=== PATIENT | male | born 1955 | race Caucasian/White ===

== ENCOUNTER 2016-03-04 08:00 | Outpatient (CLI) | payer OTHER | END 2016-03-04 08:01 | disposition home or self-care (01) | DX: E11.9 Type 2 diabetes mellitus without complications (principal); E29.1 Testicular hypofunction ==

== ENCOUNTER 2016-06-04 08:05 | Outpatient (CLI) | payer OTHER | END 2016-06-04 08:06 | disposition home or self-care (01) | DX: E11.9 Type 2 diabetes mellitus without complications (principal) ==

== ENCOUNTER 2016-09-04 10:05 | Outpatient (CLI) | payer OTHER ==
[2016-09-04 13:53] LABS: ALBUMIN/GLOBULIN RATIO 1.3 (1.0-2.2); BILIRUBIN,TOTAL 0.8 mg/dL (0.2-1.0); BUN - BLOOD UREA NITROGEN 17 mg/dL (6-20); CALCIUM 8.8 mg/dL (8.5-10.3); CARBON DIOXIDE - CO2 26 mmol/L (21-32); CHLORIDE 105 mmol/L (101-111); CHOL/HDL RATIO 6.1 (<5.0); CHOLESTEROL 218 mg/dL; GFR - MDRD 77 (>89); GLUCOSE 159 mg/dL (70-100); HDL CHOLESTEROL 36 mg/dL; LDL/HDL RATIO 4.3 (<3.6); POTASSIUM 4.1 mmol/L (3.5-5.0); SODIUM 138 mmol/L (135-145); TOTAL PROTEIN 6.9 g/dL (6.7-8.2); TRIGLYCERIDES 136 mg/dL; VLDL CHOLESTEROL 27 mg/dL
[2016-09-04 13:57] LABS: HEMOGLOBIN A1C 0.86 g/dL
== END 2016-09-04 10:06 | disposition home or self-care (01) ==
LOC: LAB.WCP 10:05
PROVIDERS: ATTEND Physician Assistant Medical
DX: E11.9 Type 2 diabetes mellitus without complications (principal)
CPT/HCPCS: 36415; 80053; 80061; 83036

== ENCOUNTER 2016-12-12 08:15 | Outpatient (CLI) | payer OTHER ==
[2016-12-12 13:45] LABS: BASOPHILS # (AUTO) 0.1 10^3/uL (0.0-0.1); BASOPHILS % (AUTO) 0.7 %; EOSINOPHILS # (AUTO) 0.2 10^3/uL (0.0-0.7); EOSINOPHILS % (AUTO) 2.8 %; HCT - HEMATOCRIT 45.4 % (42.0-52.0); HGB - HEMOGLOBIN 15.3 g/dL (14.0-18.0); LYMPHOCYTES # (AUTO) 2.9 10^3/uL (1.5-3.5); LYMPHOCYTES % (AUTO) 36.5 %; MEAN CORPUSCULAR HEMOGLOBIN 29.1 pg (27.0-31.0); MEAN CORPUSCULAR HGB CONC 33.7 g/dL (32.0-36.0); MEAN CORPUSCULAR VOLUME 86.4 fL (80.0-94.0); MEAN PLATELET VOLUME 8.6 fL (7.4-11.4); MONOCYTES # (AUTO) 0.5 10^3/uL (0.0-1.0); MONOCYTES % (AUTO) 6.6 %; NEUTROPHILS # (AUTO) 4.3 10^3/uL (1.5-6.6); NEUTROPHILS % (AUTO) 53.4 %; RED BLOOD COUNT 5.25 10^6/uL (4.70-6.10); RED CELL DISTRIBUTION WIDTH 14.1 % (12.0-15.0)
[2016-12-12 13:58] LABS: ALBUMIN/GLOBULIN RATIO 1.3 (1.0-2.2); BILIRUBIN,TOTAL 0.7 mg/dL (0.2-1.0); BUN - BLOOD UREA NITROGEN 17 mg/dL (6-20); CALCIUM 8.8 mg/dL (8.5-10.3); CARBON DIOXIDE - CO2 24 mmol/L (21-32); CHLORIDE 102 mmol/L (101-111); CHOL/HDL RATIO 6.9 (<5.0); CHOLESTEROL 254 mg/dL; CREATININE 0.9 mg/dL (0.6-1.2); GFR - MDRD 86 (>89); GLUCOSE 161 mg/dL (70-100); HDL CHOLESTEROL 37 mg/dL; LDL/HDL RATIO 4.9 (<3.6); POTASSIUM 4.1 mmol/L (3.5-5.0); SODIUM 136 mmol/L (135-145); TOTAL PROTEIN 6.9 g/dL (6.7-8.2); TRIGLYCERIDES 175 mg/dL; VLDL CHOLESTEROL 35 mg/dL
[2016-12-12 14:12] LABS: HEMOGLOBIN A1C 0.93 g/dL
== END 2016-12-12 08:16 | disposition home or self-care (01) ==
LOC: LAB.WCP 08:15
PROVIDERS: ATTEND Physician Assistant Medical
DX: Z00.00 Encounter for general adult medical examination without abnormal findings (principal); E11.9 Type 2 diabetes mellitus without complications; Z12.5 Encounter for screening for malignant neoplasm of prostate
CPT/HCPCS: 36415; 80053; 80061; 82043; 83036; 84153; 84443; 85025

== ENCOUNTER 2017-04-23 08:00 | Outpatient (CLI) | payer OTHER ==
[2017-04-23 19:00] LABS: ALBUMIN 3.8 g/dL (3.2-5.5); ALBUMIN/GLOBULIN RATIO 1.3 (1.0-2.2); ALKALINE PHOSPHATASE 47 IU/L (42-121); ALT ALANINE AMINOTRANSFERASE 30 IU/L (10-60); AST ASPARTATE AMINOTRANSFERASE 22 IU/L (10-42); BILIRUBIN,TOTAL 0.8 mg/dL (0.2-1.0); BUN - BLOOD UREA NITROGEN 15 mg/dL (6-20); CALCIUM 8.7 mg/dL (8.5-10.3); CARBON DIOXIDE - CO2 25 mmol/L (21-32); CHLORIDE 105 mmol/L (101-111); CHOL/HDL RATIO 7.1 (<5.0); CHOLESTEROL 268 mg/dL; CREATININE 0.9 mg/dL (0.6-1.2); GFR - MDRD 86 (>89); GLUCOSE 138 mg/dL (70-100); HDL CHOLESTEROL 38 mg/dL; LDL CHOLESTEROL,CALCULATED 188 mg/dL; LDL/HDL RATIO 4.9 (<3.6); SODIUM 138 mmol/L (135-145); TOTAL PROTEIN 6.7 g/dL (6.7-8.2); VLDL CHOLESTEROL 42 mg/dL
[2017-04-23 19:04] LABS: HB2 TOTAL 16.3 g/dL; HEMOGLOBIN A1C 0.85 g/dL; HEMOGLOBIN A1C % 6.9 % (4.6-6.2)
== END 2017-04-23 08:01 | disposition home or self-care (01) ==
LOC: LAB.WCP 08:00
PROVIDERS: ATTEND Physician Assistant Medical
DX: E11.9 Type 2 diabetes mellitus without complications (principal)
CPT/HCPCS: 36415; 80053; 80061; 83036; 83721

== ENCOUNTER 2017-07-30 08:00 | Outpatient (CLI) | payer OTHER ==
[2017-07-30 19:20] LABS: HB2 TOTAL 16.4 g/dL; HEMOGLOBIN A1C 0.91 g/dL; HEMOGLOBIN A1C % 7.2 % (4.6-6.2)
[2017-07-30 19:28] LABS: ALBUMIN 3.6 g/dL (3.2-5.5); ALBUMIN/GLOBULIN RATIO 1.2 (1.0-2.2); ALKALINE PHOSPHATASE 56 IU/L (42-121); ALT ALANINE AMINOTRANSFERASE 48 IU/L (10-60); AST ASPARTATE AMINOTRANSFERASE 32 IU/L (10-42); BILIRUBIN,TOTAL 0.9 mg/dL (0.2-1.0); BUN - BLOOD UREA NITROGEN 17 mg/dL (6-20); CALCIUM 8.4 mg/dL (8.5-10.3); CARBON DIOXIDE - CO2 26 mmol/L (21-32); CHLORIDE 104 mmol/L (101-111); CHOL/HDL RATIO 5.9 (<5.0); CHOLESTEROL 183 mg/dL; CREATININE 0.9 mg/dL (0.6-1.2); GFR - MDRD 86 (>89); GLUCOSE 166 mg/dL (70-100); HDL CHOLESTEROL 31 mg/dL; LDL CHOLESTEROL,CALCULATED 120 mg/dL; LDL/HDL RATIO 3.9 (<3.6); SODIUM 136 mmol/L (135-145); TOTAL PROTEIN 6.6 g/dL (6.7-8.2); VLDL CHOLESTEROL 32 mg/dL
== END 2017-07-30 08:01 ==
LOC: LAB.WCP 08:00
PROVIDERS: ATTEND Physician Assistant Medical
DX: E11.9 Type 2 diabetes mellitus without complications (principal)
CPT/HCPCS: 36415; 80053; 80061; 83036; 83721

== ENCOUNTER 2017-08-11 08:17 | Outpatient (CLI) | payer OTHER ==
--- NOTE | 2017-08-11 12:29 | MRI Report ---
Procedure Date: 08/11/2017 Accession Number: [id number] / [id number] Procedure: MRI - Lumbar Spine W/O CPT Code: FULL RESULT: EXAM: MRI LUMBAR SPINE WITHOUT CONTRAST EXAM DATE: 08/11/2017 09:04 AM. CLINICAL HISTORY: Somatic dysfunction, lumbar. COMPARISON: None. TECHNIQUE: Multiplanar, multisequence T1-weighted and fluid-sensitive sequences of the lumbar spine from T12 to S1 without contrast. Other: None. FINDINGS: Spinal Cord: The conus terminates at L1. The conus medullaris and cauda equina are unremarkable. Alignment: No scoliosis or spondylolisthesis. Bone Marrow: Five wha-yat-flrenwi lumbar vertebral bodies are assumed. No gross fractures or bone lesions. No bone marrow edema. Disk Levels/Facets: T12-L1: Mild disk dehydration, otherwise unremarkable. L1-L2: Unremarkable. L2-L3: Some disk dehydration, broad-based disk bulge. Mild central stenosis. Mild bilateral foraminal stenosis. Quite prominent facets. L3-L4: Disk space height loss, mild broad-based disk bulge is present. Prominent facets. Mild central stenosis. Moderate bilateral foraminal stenosis. L4-L5: Broad-based disk bulge, far left lateral annular tear and small focal protrusion on series 601 image 10 causing some mild narrowing of the left neural foramina. Mild central stenosis also seen. Quite prominent facets. L5-S1: Broad-based disk bulge. Prominent facets. No central or foraminal stenosis. Musculature: Moderate fatty atrophy of the multifidus musculature. Other: The partially visualized retroperitoneum is unremarkable. IMPRESSION: 1. Conus terminates at L1 which is normal, no abnormal cord signal is seen. Moderate fatty atrophy of the multifidus muscle is identified. Normal bones. 2. L2-L3 shows some disk dehydration, mild central stenosis and mild bilateral foraminal stenosis. 3. L3-L4 shows some disk space height loss, prominent facet. Mild central stenosis and moderate bilateral foraminal stenosis. 4. L4-L5 shows broad-based disk bulge, far left lateral and inferior small focal protrusion with some mild narrowing of the left foramina. Mild central stenosis also seen. 5. L5-S1 shows a broad-based bulge, no central or foraminal stenosis. Comment: The following findings are so common in adults without low back pain that while we report their presence, they must be interpreted with caution and in the context of the clinical situation. (Reference Yan et al, Spine 2001) Prevalence of findings in patients without low back pain: Disk degeneration (any evidence): 92% Disk desiccation/T2 signal loss: 83% Disk height loss: 56% Disk bulge: 64% Disk protrusion: 32% Annular tear/high intensity zone: 38% RADIA
== END 2017-08-11 08:18 | disposition home or self-care (01) ==
LOC: DI 08:17
PROVIDERS: ATTEND Physician Assistant Medical
DX: M51.26 Other intervertebral disc displacement, lumbar region (principal); M51.36 Other intervertebral disc degeneration, lumbar region; M48.061 Spinal stenosis, lumbar region without neurogenic claudication
CPT/HCPCS: 72148

== ENCOUNTER 2017-11-19 10:21 | Outpatient (CLI) | payer OTHER ==
[2017-11-19 13:26] LABS: ALBUMIN 3.9 g/dL (3.2-5.5); ALBUMIN/GLOBULIN RATIO 1.3 (1.0-2.2); ALKALINE PHOSPHATASE 58 IU/L (42-121); ALT ALANINE AMINOTRANSFERASE 30 IU/L (10-60); AST ASPARTATE AMINOTRANSFERASE 23 IU/L (10-42); BILIRUBIN,TOTAL 0.7 mg/dL (0.2-1.0); BUN - BLOOD UREA NITROGEN 16 mg/dL (6-20); CALCIUM 8.8 mg/dL (8.5-10.3); CARBON DIOXIDE - CO2 25 mmol/L (21-32); CHLORIDE 106 mmol/L (101-111); CHOL/HDL RATIO 5.9 (<5.0); CHOLESTEROL 224 mg/dL; CREATININE 0.7 mg/dL (0.6-1.2); GFR - MDRD 115 (>89); GLUCOSE 176 mg/dL (70-100); HDL CHOLESTEROL 38 mg/dL; LDL CHOLESTEROL,CALCULATED 147 mg/dL; LDL/HDL RATIO 3.9 (<3.6); SODIUM 139 mmol/L (135-145); VLDL CHOLESTEROL 39 mg/dL
[2017-11-19 14:10] LABS: HB2 TOTAL 16.3 g/dL; HEMOGLOBIN A1C 0.93 g/dL; HEMOGLOBIN A1C % 7.4 % (4.6-6.2)
== END 2017-11-19 10:22 | disposition home or self-care (01) ==
LOC: LAB.WCP 10:21
PROVIDERS: ATTEND Physician Assistant Medical
DX: E11.9 Type 2 diabetes mellitus without complications (principal)
CPT/HCPCS: 36415; 80053; 80061; 83036; 83721

== ENCOUNTER 2017-12-21 09:18 | Outpatient (CLI) | payer OTHER ==
--- NOTE | 2017-12-21 15:22 | MRI Report ---
Reason: CERVICAL RADICULOPATHY Procedure Date: 12/21/2017 Accession Number: [id number] / [id number] Procedure: MRI - Cervical Spine W/O CPT Code: FULL RESULT: EXAM: MRI CERVICAL SPINE WITHOUT CONTRAST EXAM DATE: 12/21/2017 10:22 AM. CLINICAL HISTORY: History of cervical radiculopathy. History of cervical spine conventional radiographs obtained 04/03/2016 read as "normal cervical spine." COMPARISONS: No prior MRI. Correlation is made with conventional cervical spine radiograph series from 04/03/2016. TECHNIQUE: Multiplanar, multisequence T1-weighted and fluid-sensitive sequences of the cervical spine without contrast. Other: None. FINDINGS: Neurologic Structures: The visualized posterior fossa structures are unremarkable. No signal abnormality in the visualized spinal cord. Alignment: No scoliosis or spondylolisthesis. Bone Marrow: No gross fractures or bone lesions. No marrow edema. Interspace Levels/Facets: C1-C2: Unremarkable. C2-C3: No focal disk herniation or stenosis. Minimal facet arthropathy. No significant disk space narrowing. C3-C4: Minimal to mild facet arthropathy. Slightly narrowed disk space. Shallow posterior disk bulge. Minimal marginal spurring. Mild central stenosis without cord compression. Patent neural foramina. C4-C5: Mild degenerative disk space narrowing. Mild facet arthropathy on the left. Prominent asymmetric left of midline broad-based disk protrusion with osteophyte that may slightly flatten the ventral cord surface to the left of midline and then extended laterally to the left creating moderate left lateral recess stenosis and potentially severe left foraminal stenosis, correlate to a left C5 radiculopathy. Right degenerative foraminal stenosis is relatively mild. C5-C6: Minimal disk space narrowing. Shallow broad-based disk bulge. Additional intraforaminal disk protrusion with uncinate process spurring/facet arthropathy is present, left more than right. Foraminal stenosis is mild to moderate on the right and at least moderate on the left. Mild central canal stenosis also but without cord compression. Findings at this level would potentially correlate to a left C6 radiculopathy, less likely a right C6 radiculopathy. C6-C7: Mild to moderate degenerative disk disease. Shallow broad-based disk bulge and additional asymmetric large right intraforaminal disk herniation with osteophyte. Patent central canal. Mild right lateral recess stenosis and potentially severe right foraminal stenosis, correlate to a right C7 radiculopathy. Patent left foramen. C7-T1: Unremarkable. Musculature: Normal. No edema or fatty atrophy. Other: No prevertebral edema. IMPRESSION: 1. Degenerative changes at multiple cervical levels including asymmetric disk protrusions with uncinate process hypertrophy and spurring associated with foraminal stenosis. 2. Relatively mild central stenosis without cord compression. 3. Foraminal stenosis appears significant with potentially associated radiculopathy, on the left at C4-C5, left worse than right at C5-C6 and on the right at C6-C7. 4. Lateral recess stenosis is also present on the left at C4-C5 and to a lesser degree on the right at C6-C7. 5. No focal spinal cord signal abnormality including where probably mildly flattened by left side disk herniation at C4-C5 level. RADIA
== END 2017-12-21 09:19 | disposition home or self-care (01) ==
LOC: DI 09:18
PROVIDERS: ATTEND Physician Assistant Medical
DX: M50.221 Other cervical disc displacement at C4-C5 level (principal); M47.9 Spondylosis, unspecified; M50.31 Other cervical disc degeneration, high cervical region; M48.02 Spinal stenosis, cervical region
CPT/HCPCS: 72141

== ENCOUNTER 2018-03-09 08:00 | Outpatient (CLI) | payer OTHER ==
[2018-03-09 12:37] LABS: CALCIUM 8.8 mg/dL (8.5-10.3); CREATININE 0.9 mg/dL (0.6-1.2)
[2018-03-09 12:47] LABS: HB2 TOTAL 16.6 g/dL; HEMOGLOBIN A1C 0.95 g/dL; HEMOGLOBIN A1C % 7.4 % (4.6-6.2)
== END 2018-03-09 23:59 | disposition home or self-care (01) ==
LOC: LAB.WCP 08:00
PROVIDERS: ATTEND Physician Assistant Medical
DX: E11.9 Type 2 diabetes mellitus without complications (principal)
CPT/HCPCS: 36415; 80048; 83036

== ENCOUNTER 2018-05-27 08:00 | Outpatient (CLI) | payer OTHER ==
[2018-05-27 18:42] LABS: BASOPHILS # (AUTO) 0.1 10^3/uL (0.0-0.1); BASOPHILS % (AUTO) 0.6 %; EOSINOPHILS # (AUTO) 0.3 10^3/uL (0.0-0.7); EOSINOPHILS % (AUTO) 3.2 %; HGB - HEMOGLOBIN 15.4 g/dL (14.0-18.0); LYMPHOCYTES # (AUTO) 3.5 10^3/uL (1.5-3.5); LYMPHOCYTES % (AUTO) 42.8 %; MEAN CORPUSCULAR HEMOGLOBIN 29.2 pg (27.0-31.0); MEAN CORPUSCULAR HGB CONC 33.3 g/dL (32.0-36.0); MEAN CORPUSCULAR VOLUME 87.7 fL (80.0-94.0); MEAN PLATELET VOLUME 8.4 fL (7.4-11.4); MONOCYTES # (AUTO) 0.6 10^3/uL (0.0-1.0); MONOCYTES % (AUTO) 7.8 %; NEUTROPHILS # (AUTO) 3.7 10^3/uL (1.5-6.6); NEUTROPHILS % (AUTO) 45.6 %; PLT - PLATELET COUNT 202 10^3/uL (130-450); RED BLOOD COUNT 5.26 10^6/uL (4.70-6.10); RED CELL DISTRIBUTION WIDTH 14.3 % (12.0-15.0); WHITE BLOOD COUNT 8.2 x10^3/uL (4.8-10.8)
[2018-05-27 20:36] LABS: ALBUMIN 3.9 g/dL (3.2-5.5); ALBUMIN/GLOBULIN RATIO 1.2 (1.0-2.2); ALKALINE PHOSPHATASE 53 IU/L (42-121); ALT ALANINE AMINOTRANSFERASE 23 IU/L (10-60); AST ASPARTATE AMINOTRANSFERASE 26 IU/L (10-42); BILIRUBIN,TOTAL 1.1 mg/dL (0.2-1.0); BUN - BLOOD UREA NITROGEN 17 mg/dL (6-20); CARBON DIOXIDE - CO2 24 mmol/L (21-32); CHLORIDE 106 mmol/L (101-111); CHOL/HDL RATIO 5.1 (<5.0); CHOLESTEROL 209 mg/dL; CREATININE 0.8 mg/dL (0.6-1.2); GFR - MDRD 99 (>89); GLUCOSE 163 mg/dL (70-100); HDL CHOLESTEROL 41 mg/dL; LDL CHOLESTEROL,CALCULATED 139 mg/dL; LDL/HDL RATIO 3.4 (<3.6); SODIUM 139 mmol/L (135-145); TOTAL PROTEIN 7.1 g/dL (6.7-8.2); VLDL CHOLESTEROL 29 mg/dL
[2018-05-27 21:36] LABS: HB2 TOTAL 16.6 g/dL; HEMOGLOBIN A1C 0.94 g/dL; HEMOGLOBIN A1C % 7.3 % (4.6-6.2)
== END 2018-05-27 08:01 | disposition home or self-care (01) ==
LOC: LAB.WCP 08:00
PROVIDERS: ATTEND Physician Assistant Medical
DX: Z00.00 Encounter for general adult medical examination without abnormal findings (principal); E78.5 Hyperlipidemia, unspecified; E11.9 Type 2 diabetes mellitus without complications; Z12.5 Encounter for screening for malignant neoplasm of prostate
CPT/HCPCS: 36415; 80053; 80061; 82043; 83036; 83721; 84153; 84443; 85025

== ENCOUNTER 2018-09-20 10:46 | Outpatient (CLI) | payer OTHER ==
[2018-09-20 11:31] LABS: CALCIUM 9.1 mg/dL (8.5-10.3)
[2018-09-20 11:46] LABS: HB2 TOTAL 15.9 g/dL; HEMOGLOBIN A1C 1.06 g/dL; HEMOGLOBIN A1C % 8.3 % (4.6-6.2)
== END 2018-09-20 10:47 | disposition home or self-care (01) ==
LOC: LAB 10:46
PROVIDERS: ATTEND Physician Assistant Medical
DX: E11.9 Type 2 diabetes mellitus without complications (principal)
CPT/HCPCS: 36415; 80048; 83036

== ENCOUNTER 2018-12-21 08:00 | Outpatient (CLI) | payer OTHER ==
[2018-12-21 12:43] LABS: ALBUMIN 3.8 g/dL (3.2-5.5); ALBUMIN/GLOBULIN RATIO 1.3 (1.0-2.2); ALKALINE PHOSPHATASE 54 IU/L (42-121); ALT ALANINE AMINOTRANSFERASE 22 IU/L (10-60); AST ASPARTATE AMINOTRANSFERASE 20 IU/L (10-42); BUN - BLOOD UREA NITROGEN 20 mg/dL (6-20); CALCIUM 8.7 mg/dL (8.5-10.3); CARBON DIOXIDE - CO2 28 mmol/L (21-32); CHLORIDE 105 mmol/L (101-111); CHOL/HDL RATIO 5.9 (<5.0); CHOLESTEROL 211 mg/dL; CREATININE 0.9 mg/dL (0.6-1.2); GFR - MDRD 86 (>89); GLUCOSE 161 mg/dL (70-100); HB2 TOTAL 15.6 g/dL; HDL CHOLESTEROL 36 mg/dL; HEMOGLOBIN A1C 0.81 g/dL; HEMOGLOBIN A1C % 6.9 % (4.6-6.2); LDL CHOLESTEROL,CALCULATED 153 mg/dL; LDL/HDL RATIO 4.3 (<3.6); SODIUM 139 mmol/L (135-145); TOTAL PROTEIN 6.8 g/dL (6.7-8.2); VLDL CHOLESTEROL 22 mg/dL
== END 2018-12-21 23:59 | disposition home or self-care (01) ==
LOC: LAB.WCP 08:00
PROVIDERS: ATTEND Physician Assistant Medical
DX: E11.9 Type 2 diabetes mellitus without complications (principal)
CPT/HCPCS: 36415; 80053; 80061; 83036; 83721

== ENCOUNTER 2019-03-21 08:00 | Outpatient (CLI) | payer OTHER ==
[2019-03-21 12:27] LABS: HB2 TOTAL 15.1 g/dL; HEMOGLOBIN A1C 0.83 g/dL; HEMOGLOBIN A1C % 7.2 % (4.6-6.2)
[2019-03-21 12:31] LABS: ALBUMIN 3.6 g/dL (3.2-5.5); ALBUMIN/GLOBULIN RATIO 1.2 (1.0-2.2); ALKALINE PHOSPHATASE 46 IU/L (42-121); ALT ALANINE AMINOTRANSFERASE 20 IU/L (10-60); AST ASPARTATE AMINOTRANSFERASE 16 IU/L (10-42); BUN - BLOOD UREA NITROGEN 19 mg/dL (6-20); CALCIUM 8.5 mg/dL (8.5-10.3); CARBON DIOXIDE - CO2 26 mmol/L (21-32); CHLORIDE 105 mmol/L (101-111); CHOLESTEROL 222 mg/dL; CREATININE 0.9 mg/dL (0.6-1.2); GFR - MDRD 86 (>89); GLUCOSE 171 mg/dL (70-100); HDL CHOLESTEROL 37 mg/dL; LDL CHOLESTEROL,CALCULATED 158 mg/dL; LDL/HDL RATIO 4.3 (<3.6); SODIUM 138 mmol/L (135-145); TOTAL PROTEIN 6.7 g/dL (6.7-8.2); VLDL CHOLESTEROL 27 mg/dL
== END 2019-03-21 23:59 | disposition home or self-care (01) ==
LOC: LAB.WCP 08:00
PROVIDERS: ATTEND Physician Assistant Medical
DX: E11.9 Type 2 diabetes mellitus without complications (principal)
CPT/HCPCS: 36415; 80053; 80061; 83036; 83721

== ENCOUNTER 2019-06-20 09:36 | Outpatient (CLI) | payer OTHER ==
[2019-06-20 13:20] LABS: BASOPHILS # (AUTO) 0.1 10^3/uL (0.0-0.1); BASOPHILS % (AUTO) 0.7 %; EOSINOPHILS # (AUTO) 0.3 10^3/uL (0.0-0.7); EOSINOPHILS % (AUTO) 4.6 %; HGB - HEMOGLOBIN 15.2 g/dL (14.0-18.0); LYMPHOCYTES # (AUTO) 2.5 10^3/uL (1.5-3.5); LYMPHOCYTES % (AUTO) 34.4 %; MEAN CORPUSCULAR HEMOGLOBIN 29.5 pg (27.0-31.0); MEAN CORPUSCULAR HGB CONC 33.3 g/dL (32.0-36.0); MEAN CORPUSCULAR VOLUME 88.7 fL (80.0-94.0); MEAN PLATELET VOLUME 10.5 fL (7.4-11.4); MONOCYTES # (AUTO) 0.6 10^3/uL (0.0-1.0); MONOCYTES % (AUTO) 8.1 %; NEUTROPHILS # (AUTO) 3.8 10^3/uL (1.5-6.6); NEUTROPHILS % (AUTO) 51.8 %; PLT - PLATELET COUNT 205 10^3/uL (130-450); RED BLOOD COUNT 5.15 10^6/uL (4.70-6.10); RED CELL DISTRIBUTION WIDTH 13.8 % (12.0-15.0); WHITE BLOOD COUNT 7.2 x10^3/uL (4.8-10.8)
[2019-06-20 13:47] LABS: ALBUMIN 3.7 g/dL (3.2-5.5); ALBUMIN/GLOBULIN RATIO 1.2 (1.0-2.2); ALKALINE PHOSPHATASE 56 IU/L (42-121); ALT ALANINE AMINOTRANSFERASE 27 IU/L (10-60); AST ASPARTATE AMINOTRANSFERASE 23 IU/L (10-42); BILIRUBIN,TOTAL 1.3 mg/dL (0.2-1.0); BUN - BLOOD UREA NITROGEN 15 mg/dL (6-20); CALCIUM 8.6 mg/dL (8.5-10.3); CARBON DIOXIDE - CO2 27 mmol/L (21-32); CHLORIDE 103 mmol/L (101-111); CHOL/HDL RATIO 6.9 (<5.0); CHOLESTEROL 255 mg/dL; CREATININE 0.9 mg/dL (0.6-1.2); GLUCOSE 186 mg/dL (70-100); HDL CHOLESTEROL 37 mg/dL; LDL CHOLESTEROL,CALCULATED 191 mg/dL; LDL/HDL RATIO 5.2 (<3.6); SODIUM 137 mmol/L (135-145); TOTAL PROTEIN 6.7 g/dL (6.7-8.2); VLDL CHOLESTEROL 27 mg/dL
[2019-06-20 13:51] LABS: HB2 TOTAL 15.2 g/dL; HEMOGLOBIN A1C 0.83 g/dL; HEMOGLOBIN A1C % 7.1 % (4.6-6.2)
[2019-06-20 13:55] LABS: CREATININE,URINE 119.2 mg/dL; MICROALBUM/CREATININE RATIO,UR 1.7 ug/mg (<30.0); MICROALBUMIN,URINE 0.2 mg/dL (0-300.0)
== END 2019-06-20 23:59 | disposition home or self-care (01) ==
LOC: LAB.WCP 09:36
PROVIDERS: ATTEND Physician Assistant Medical
DX: E78.5 Hyperlipidemia, unspecified (principal); E11.9 Type 2 diabetes mellitus without complications; Z12.5 Encounter for screening for malignant neoplasm of prostate; J30.9 Allergic rhinitis, unspecified
CPT/HCPCS: 36415; 80053; 80061; 82043; 82570; 83036; 83721; 84153; 84443; 85025

== ENCOUNTER 2019-09-06 08:33 | Outpatient (CLI) | payer OTHER ==
[2019-09-06 09:01] LABS: BUN - BLOOD UREA NITROGEN 16 mg/dL (6-20); CALCIUM 8.6 mg/dL (8.5-10.3); CARBON DIOXIDE - CO2 28 mmol/L (21-32); CHLORIDE 103 mmol/L (101-111); CHOL/HDL RATIO 4.8 (<5.0); CHOLESTEROL 200 mg/dL; CREATININE 0.9 mg/dL (0.6-1.2); GLUCOSE 191 mg/dL (70-100); HDL CHOLESTEROL 42 mg/dL; LDL CHOLESTEROL,CALCULATED 129 mg/dL; LDL/HDL RATIO 3.1 (<3.6); SODIUM 139 mmol/L (135-145); VLDL CHOLESTEROL 29 mg/dL
[2019-09-06 10:41] LABS: HB2 TOTAL 15.7 g/dL; HEMOGLOBIN A1C 0.88 g/dL; HEMOGLOBIN A1C % 7.3 % (4.6-6.2)
== END 2019-09-06 08:34 | disposition home or self-care (01) ==
LOC: LAB 08:33
PROVIDERS: ATTEND Physician Assistant Medical
DX: E11.9 Type 2 diabetes mellitus without complications (principal)
CPT/HCPCS: 36415; 80048; 80061; 83036; 83721

== ENCOUNTER 2019-09-09 10:57 | Outpatient (CLI) | payer OTHER ==
--- NOTE | 2019-09-09 11:36 | XRAY Report ---
PROCEDURE: Knee 2 View BILAT INDICATIONS: OSTEOARTHRITIS KNEES, BILATERAL TECHNIQUE: 2 standing views of each knee were obtained. COMPARISON: None. FINDINGS: Bones: No fractures or dislocations. No suspicious bony lesions. Moderate bilateral tricompartment al periarticular osteophyte formation. Severe medial compartment narrowing bilaterally. Soft tissues: Small bilateral knee joint effusions. No suspicious soft tissue calcifications. IMPRESSION: 1. Osteoarthritis with medial compartment narrowing bilaterally. 2. No acute fracture. No osseous lesion. If symptoms and/or clinical suspicion for pathology continue , further assessment with repeat plain films, or advanced imaging (e.g., CT, MRI, or bone scan) is re commended for further assessment. Reviewed by: Phyllis Quinteros MD on 09/09/2019 11:35 AM PDT Approved by: Phyllis Quinteros MD on 09/09/2019 11:35 AM PDT Station ID: [id number]
== END 2019-09-09 10:58 | disposition home or self-care (01) ==
LOC: DI 10:57
PROVIDERS: ATTEND Physician Assistant Medical
DX: M17.0 Bilateral primary osteoarthritis of knee (principal)
CPT/HCPCS: 73565

== ENCOUNTER 2020-01-20 08:50 | Outpatient (CLI) | payer OTHER ==
[2020-01-20 13:30] LABS: ALBUMIN 3.8 g/dL (3.2-5.5); ALBUMIN/GLOBULIN RATIO 1.2 (1.0-2.2); ALKALINE PHOSPHATASE 56 IU/L (42-121); ALT ALANINE AMINOTRANSFERASE 22 IU/L (10-60); AST ASPARTATE AMINOTRANSFERASE 20 IU/L (10-42); BILIRUBIN,TOTAL 0.8 mg/dL (0.2-1.0); BUN - BLOOD UREA NITROGEN 12 mg/dL (6-20); CALCIUM 8.4 mg/dL (8.5-10.3); CARBON DIOXIDE - CO2 26 mmol/L (21-32); CHLORIDE 105 mmol/L (101-111); CHOLESTEROL 223 mg/dL; GLUCOSE 213 mg/dL (70-100); HDL CHOLESTEROL 45 mg/dL; LDL CHOLESTEROL,CALCULATED 146 mg/dL; LDL/HDL RATIO 3.2 (<3.6); SODIUM 137 mmol/L (135-145); VLDL CHOLESTEROL 32 mg/dL
[2020-01-20 13:45] LABS: HEMOGLOBIN A1c% 7.8 % (4.27-6.07)
== END 2020-01-20 23:59 | disposition home or self-care (01) ==
LOC: LAB.WCP 08:50
PROVIDERS: ATTEND Physician Assistant Medical
DX: E11.9 Type 2 diabetes mellitus without complications (principal)
CPT/HCPCS: 36415; 80053; 80061; 83036; 83721

== ENCOUNTER 2020-01-24 08:00 | Outpatient (CLI) | payer OTHER | END 2020-01-24 23:59 | disposition home or self-care (01) | LOC: LAB.WCP 08:00 | PROVIDERS: ATTEND Physician Assistant Medical | DX: N52.9 Male erectile dysfunction, unspecified (principal) | CPT/HCPCS: 36415; 82040; 84270; 84403 ==

== ENCOUNTER 2020-04-03 08:37 | Outpatient (CLI) | payer OTHER ==
--- NOTE | 2020-04-03 09:48 | XRAY Report ---
PROCEDURE: Ankle 3 View LT INDICATIONS: L ANKLE PX TECHNIQUE: 3 views of the ankle were acquired. COMPARISON: None FINDINGS: Bones: No fractures or dislocations. Ankle mortise is normally aligned. No suspicious bony lesions . Mild tibiotalar joint osteoarthritis. Soft tissues: No tibiotalar joint effusion. Achilles tendon appears normal. Nonspecific soft tissue swelling is noted which could be posttraumatic or infectious. IMPRESSION: 1. No fracture. No osseous lesion. If there are persistent symptoms or continued clinical concern for pathology, then repeat plain film radiographs (7-10 days) or advanced imaging (CT, MR, bone scan) sh ould be considered for further evaluation. 2. Nonspecific soft tissue swelling which could be posttraumatic or infectious. Reviewed by: Cindy Gomez MD, PhD on 04/03/2020 9:47 AM PST Approved by: Cindy Gomez MD, PhD on 04/03/2020 9:47 AM PST Station ID: [id number]
== END 2020-04-03 23:59 | disposition home or self-care (01) ==
LOC: DI.N 08:37
PROVIDERS: ATTEND Family Medicine
DX: M19.072 Primary osteoarthritis, left ankle and foot (principal)

== ENCOUNTER 2020-05-08 08:00 | Outpatient (CLI) | payer OTHER ==
[2020-05-08 18:29] LABS: ALBUMIN 3.9 g/dL (3.2-5.5); ALBUMIN/GLOBULIN RATIO 1.2 (1.0-2.2); ALKALINE PHOSPHATASE 68 IU/L (42-121); ALT ALANINE AMINOTRANSFERASE 20 IU/L (10-60); AST ASPARTATE AMINOTRANSFERASE 18 IU/L (10-42); BILIRUBIN,TOTAL 1.1 mg/dL (0.2-1.0); BUN - BLOOD UREA NITROGEN 16 mg/dL (6-20); CALCIUM 8.8 mg/dL (8.5-10.3); CARBON DIOXIDE - CO2 27 mmol/L (21-32); CHLORIDE 101 mmol/L (101-111); CHOL/HDL RATIO 6.2 (<5.0); CHOLESTEROL 234 mg/dL; GFR - MDRD 76 (>89); GLUCOSE 191 mg/dL (70-100); HDL CHOLESTEROL 38 mg/dL; LDL CHOLESTEROL,CALCULATED 148 mg/dL; LDL/HDL RATIO 3.9 (<3.6); SODIUM 136 mmol/L (135-145); TOTAL PROTEIN 7.1 g/dL (6.7-8.2); TRIGLYCERIDES 238 mg/dL; VLDL CHOLESTEROL 48 mg/dL
[2020-05-08 20:15] LABS: ESTIMATED AVERAGE GLUCOSE 194 mg/dL (70-100); HEMOGLOBIN A1c% 8.4 % (4.27-6.07)
== END 2020-05-08 23:59 | disposition home or self-care (01) ==
LOC: LAB.WCP 08:00
PROVIDERS: ATTEND Physician Assistant Medical
DX: E11.9 Type 2 diabetes mellitus without complications (principal)
CPT/HCPCS: 36415; 80053; 80061; 83036; 83721

== ENCOUNTER 2020-05-10 12:50 | Outpatient (CLI) | payer OTHER ==
--- NOTE | 2020-05-10 14:57 | Ultrasound Report ---
PROCEDURE: Duplex Ext Veins Left INDICATIONS: LEG EDEMA TECHNIQUE: Real-time imaging, as well as color and pulse Doppler interrogation, were performed of the lower extr emity deep veins from the inguinal ligament to the popliteal fossa. COMPARISON: None. FINDINGS: The deep veins are normally compressible, and free of intraluminal thrombus. Color and pu lse Doppler demonstrate normal phasic intraluminal flow. There is normal augmentation response to di stal compression maneuver. IMPRESSION: No sonographic evidence of deep venous thrombosis in the left lower extremity. Reviewed by: Edi Tobar MD on 05/10/2020 2:56 PM [facility] Approved by: Edi Tobar MD on 05/10/2020 2:56 PM [facility] Station ID: [id number]
== END 2020-05-10 12:51 | disposition home or self-care (01) ==
LOC: DI 12:50
PROVIDERS: ATTEND Physician Assistant Medical
DX: R60.0 Localized edema (principal)

== ENCOUNTER 2020-08-06 12:21 | Outpatient (CLI) | payer OTHER ==
[2020-08-06 18:21] LABS: BASOPHILS # (AUTO) 0.1 10^3/uL (0.0-0.1); BASOPHILS % (AUTO) 0.9 %; EOSINOPHILS # (AUTO) 0.6 10^3/uL (0.0-0.7); EOSINOPHILS % (AUTO) 6.9 %; HCT - HEMATOCRIT 44.4 % (42.0-52.0); LYMPHOCYTES # (AUTO) 2.9 10^3/uL (1.5-3.5); LYMPHOCYTES % (AUTO) 35.9 %; MEAN CORPUSCULAR HGB CONC 33.8 g/dL (32.0-36.0); MEAN CORPUSCULAR VOLUME 88.8 fL (80.0-94.0); MEAN PLATELET VOLUME 10.2 fL (7.4-11.4); MONOCYTES # (AUTO) 0.6 10^3/uL (0.0-1.0); MONOCYTES % (AUTO) 7.7 %; NEUTROPHILS # (AUTO) 3.9 10^3/uL (1.5-6.6); NEUTROPHILS % (AUTO) 48.1 %; PLT - PLATELET COUNT 199 10^3/uL (130-450); RED CELL DISTRIBUTION WIDTH 13.4 % (12.0-15.0); WHITE BLOOD COUNT 8.1 x10^3/uL (4.8-10.8)
[2020-08-06 18:41] LABS: MICROALBUM/CREATININE RATIO,UR 7.8 ug/mg (<30.0); MICROALBUMIN,URINE 0.9 mg/dL (0-300.0)
[2020-08-06 18:51] LABS: THYROID STIMULATING HORMONE 1.09 uIU/mL (0.34-5.60)
[2020-08-06 19:27] LABS: ALBUMIN 3.8 g/dL (3.2-5.5); ALBUMIN/GLOBULIN RATIO 1.1 (1.0-2.2); ALKALINE PHOSPHATASE 67 IU/L (42-121); ALT ALANINE AMINOTRANSFERASE 19 IU/L (10-60); AST ASPARTATE AMINOTRANSFERASE 16 IU/L (10-42); BILIRUBIN,TOTAL 0.8 mg/dL (0.2-1.0); BUN - BLOOD UREA NITROGEN 14 mg/dL (6-20); CALCIUM 9.1 mg/dL (8.5-10.3); CARBON DIOXIDE - CO2 29 mmol/L (21-32); CHLORIDE 104 mmol/L (101-111); CHOL/HDL RATIO 5.7 (<5.0); CHOLESTEROL 226 mg/dL; CREATININE 1.1 mg/dL (0.6-1.2); GFR - MDRD 68 (>89); GLUCOSE 141 mg/dL (70-100); HDL CHOLESTEROL 40 mg/dL; LDL CHOLESTEROL,CALCULATED 160 mg/dL; POTASSIUM 4.2 mmol/L (3.5-5.0); SODIUM 140 mmol/L (135-145); TOTAL PROTEIN 7.2 g/dL (6.7-8.2); TRIGLYCERIDES 131 mg/dL; VLDL CHOLESTEROL 26 mg/dL
[2020-08-06 21:32] LABS: ESTIMATED AVERAGE GLUCOSE 146 mg/dL (70-100); HEMOGLOBIN A1c% 6.7 % (4.27-6.07)
== END 2020-08-06 23:59 | disposition home or self-care (01) ==
LOC: LAB.WCP 12:21
PROVIDERS: ATTEND Physician Assistant Medical
DX: E78.5 Hyperlipidemia, unspecified (principal); E11.9 Type 2 diabetes mellitus without complications; Z12.5 Encounter for screening for malignant neoplasm of prostate; J30.9 Allergic rhinitis, unspecified
CPT/HCPCS: 36415; 80053; 80061; 82043; 82570; 83036; 83721; 84153; 84443; 85025

== ENCOUNTER 2020-08-27 11:02 | Outpatient (CLI) | payer OTHER ==
--- NOTE | 2020-08-27 15:53 | XRAY Report ---
PROCEDURE: Ankle 3 View LT INDICATIONS: L ANKLE PAIN TECHNIQUE: 3 views of the ankle were acquired. COMPARISON: Left ankle x-ray 04/03/2020 FINDINGS: Bones: There is a nondisplaced medial malleolar fracture. Ankle mortise is normally aligned. No susp icious bony lesions. Soft tissues: Medial malleolar soft tissue edema. Achilles tendon appears normal. IMPRESSION: Nondisplaced medial malleolar fracture. Reviewed by: Federica Chavarria MD on 08/27/2020 3:52 PM PDT Approved by: Federiac Chavarria MD on 08/27/2020 3:52 PM PDT Station ID: [id number]
== END 2020-08-27 11:03 | disposition home or self-care (01) ==
LOC: DI 11:02
PROVIDERS: ATTEND Podiatrist
DX: S82.55XA Nondisplaced fracture of medial malleolus of left tibia, initial encounter for closed fracture (principal)

== ENCOUNTER 2020-10-16 17:47 | Outpatient (CLI) | payer OTHER ==
--- NOTE | 2020-10-16 18:39 | XRAY Report ---
PROCEDURE: Ankle 3 View LT INDICATIONS: FRACTURE BASE OF MEDIAL MALLEOLUS OF THE LEFT ANKLE TECHNIQUE: 3 views of the ankle were acquired. COMPARISON: 04/03/2020 left ankle. FINDINGS: Bones: No new fractures or dislocations. Ankle mortise is normally aligned. No suspicious bony les ions. Soft tissues: No tibiotalar joint effusion. Achilles tendon appears normal. IMPRESSION: Healed fracture diagonally located across the base of the medial malleolus. Reviewed by: Darryn Lara MD on 10/16/2020 6:37 PM PDT Approved by: Darryn Lara MD on 10/16/2020 6:37 PM PDT Station ID: [id number]
== END 2020-10-16 17:48 | disposition home or self-care (01) ==
LOC: DI 17:47
PROVIDERS: ATTEND Podiatrist
DX: S82.52XD Displaced fracture of medial malleolus of left tibia, subsequent encounter for closed fracture with routine healing (principal)

== ENCOUNTER 2020-12-04 08:50 | Outpatient (CLI) | payer OTHER ==
[2020-12-04 09:17] LABS: BUN - BLOOD UREA NITROGEN 19 mg/dL (6-20); CALCIUM 8.9 mg/dL (8.5-10.3); CARBON DIOXIDE - CO2 29 mmol/L (21-32); CHLORIDE 101 mmol/L (101-111); CHOL/HDL RATIO 5.5 (<5.0); CHOLESTEROL 220 mg/dL; GFR - MDRD 75 (>89); GLUCOSE 171 mg/dL (70-100); HDL CHOLESTEROL 40 mg/dL; LDL CHOLESTEROL,CALCULATED 153 mg/dL; LDL/HDL RATIO 3.8 (<3.6); POTASSIUM 4.8 mmol/L (3.5-5.0); SODIUM 139 mmol/L (135-145); TRIGLYCERIDES 137 mg/dL; VLDL CHOLESTEROL 27 mg/dL
[2020-12-04 12:48] LABS: ESTIMATED AVERAGE GLUCOSE 143 mg/dL (70-100); HEMOGLOBIN A1c% 6.6 % (4.27-6.07)
== END 2020-12-04 08:51 | disposition home or self-care (01) ==
LOC: LAB 08:50
PROVIDERS: ATTEND Physician Assistant Medical
DX: E11.9 Type 2 diabetes mellitus without complications (principal)
CPT/HCPCS: 36415; 80048; 80061; 83036; 83721

== ENCOUNTER 2021-06-16 12:09 | Emergency (ER) | payer OTHER ==
--- NOTE | 2021-06-16 12:25 | ED Physician Documentation ---
PD HPI FOCAL NEURO - Stated complaint Stated Complaint: RT ARM NUMB/SLURRED SPEACH - History obtained from History obtained from: Patient, Family - History of Present Illness Timing - details: Abrupt onset Severity of deficit: Moderate Weakness: No: Face, Arm, Hand, Leg, Foot, Right, Left Numbness: Right (hand). No: Face, Arm, Hand, Leg, Foot, Left Associated symptoms: No: Headache, Nausea / vomiting, Seizure, Syncope, Fall, Head injury, Chest pain, Neck pain, Back pain, Fever Contributing factors: negative: Anticoagulated Baseline status: positive: A&OX3, ambulatory, indep - Additional information Additional information: 65-year-old male brought in by his today for slurred speech. Last known normal was about 25 to 30 minutes prior to arrival. He states that he has numbness in his right hand, but not in the arm. They were at home when the symptoms started. There is no weakness. No facial droop. No vision changes. Nothing makes it better or worse. Has not had similar symptoms previously. He is diabetic. Also history of hypertension hyperlipidemia. Review of Systems Ten Systems: 10 systems reviewed and negative Constitutional: denies: Fever, Chills Eyes: denies: Decreased vision Ears: denies: Ear pain Nose: denies: Rhinorrhea / runny nose, Congestion Respiratory: denies: Dyspnea, Cough GI: denies: Nausea, Vomiting, Diarrhea : denies: Dysuria Skin: denies: Rash Musculoskeletal: denies: Neck pain, Back pain Neurologic: denies: Focal weakness, Syncope, Seizure, Confused, Altered mental status, Headache, Head injury, LOC PD PAST MEDICAL HISTORY - Past Medical History Cardiovascular: Hypertension, High cholesterol Respiratory: None Endocrine/Autoimmune: Type 2 diabetes GI: None : None HEENT: Chronic vision loss, Chronic sinusitis Psych: None Musculoskeletal: None Derm: None - Past Surgical History General: Appendectomy - Present Medications Home Medications: Ambulatory Orders Medication Instructions Recorded Confirmed Budesonide/Formoterol Fumarate 2 gm IH BID PRN 11/26/12 04/16/15 [Symbicort 160-4.5 Mcg Inhaler] Metformin HCl 500 mg PO DAILY 11/26/12 06/16/21 Losartan Potassium 50 mg PO DAILY 04/16/15 06/16/21 Meloxicam 7.5 mg PO BID 04/16/15 06/16/21 Rosuvastatin Calcium [Crestor] 2.5 mg PO DAILY 04/16/15 06/16/21 HYDROcod/ACETAM 5/325 [[place] 5/325] 1 - 2 ea PO Q6H PRN #10 tablet 11/27/15 Glimepiride [Amaryl] 2 mg PO 0800 06/16/21 06/16/21 Ubidecarenone [Co Q-10] 06/16/21 - Allergies Allergies/Adverse Reactions: Allergies Allergy/AdvReac Type Severity Reaction Status Date / Time poultry Allergy Severe Anaphylaxis Uncoded 06/16/21 12:23 - Social History Does the pt smoke?: No Smoking Status: Never smoker PD ED PE NORMAL - Vitals Vital signs reviewed: Yes - General General: Alert and oriented X 3, No acute distress, Well developed/nourished - HEENT HEENT: Moist mucous membranes - Neck Neck: Supple, no meningeal sign - Cardiac Cardiac: RRR, Strong equal pulses - Respiratory Respiratory: No respiratory distress, Clear bilaterally - Abdomen Abdomen: Soft, Non tender, Non distended - Back Back: No spinal TTP - Derm Derm: Warm and dry - Extremities Extremities: No edema - Neuro Neuro: Alert and oriented X 3, 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, No motor deficit, No sensory deficit, Other (mild dysarthria and aphasia) Eye Opening: Spontaneous Motor: Obeys Commands Verbal: Oriented GCS Score: 15 - Psych Psych: Normal mood, Normal affect NIHSS - Time Time: 12:21 - Level of Consciousness Level of consciousness: (0) Alert, Keenly responsive LOC Questions: (0) Answers both Q's correct LOC Commands: (0) Performs both correctly - Gaze Best Gaze: (0) Normal - Visual Visual: (0) No loss - Facial Palsy Facial Palsy: (0) Normal, symmetrical movement - Motor Arms (both separate) Motor Arm (right): (0) No drift Motor Arm (left): (0) No drift - Motor Legs (both separate) Motor Leg (right): (0) No drift Motor Leg (left): (0) No drift - Limb Ataxia Limb Ataxia: (0) Absent - Sensory Sensory: (1) Cruw-bk-nsuchfqt loss - Best Language Best Language: (1) [id number] - Dysarthria Dysarthria: (1) Xnlm-xy-nflimwei dysarthria - Extinction and Inattention (formally neg Extinction and inattention: (0) No abnormality - Total Score/Results Total Score/Result: 3 Results - Vitals Vitals: Vital Signs - 24 hr 06/16/21 06/16/21 06/16/21 12:11 12:57 13:29 Temperature 37.0 C Heart Rate 73 75 86 Respiratory 17 24 18 Rate Blood Pressure 177/93 H 182/106 H 184/127 H O2 Saturation 99 97 99 06/16/21 06/16/21 06/16/21 13:30 13:35 13:40 Temperature Heart Rate 80 75 77 Respiratory 17 22 18 Rate Blood Pressure 184/118 H 186/103 H 195/122 H O2 Saturation 97 99 97 06/16/21 06/16/21 06/16/21 14:04 14:05 14:10 Temperature Heart Rate 89 86 84 Respiratory 19 19 24 Rate Blood Pressure 155/98 H 185/95 H 179/103 H O2 Saturation 94 99 96 06/16/21 06/16/21 06/16/21 14:15 14:20 14:25 Temperature Heart Rate 80 80 82 Respiratory 20 16 17 Rate Blood Pressure 186/107 H 181/98 H 184/100 H O2 Saturation 96 97 98 06/16/21 06/16/21 06/16/21 14:30 14:35 14:40 Temperature Heart Rate 89 82 77 Respiratory 21 17 17 Rate Blood Pressure 181/102 H 184/96 H 170/110 H O2 Saturation 99 97 97 06/16/21 06/16/21 06/16/21 14:46 14:50 14:55 Temperature Heart Rate 83 87 84 Respiratory 21 16 23 Rate Blood Pressure 152/93 H 162/92 H 164/95 H O2 Saturation 98 97 93 06/16/21 15:00 Temperature Heart Rate 86 Respiratory 20 Rate Blood Pressure 158/92 H O2 Saturation 96 Oxygen O2 Source Room air - EKG (time done) 1230 Rate: Rate (enter#) (71) Rhythm: NSR [place]: Normal Intervals: 1st degree AVB, RBBB - Labs Labs: Laboratory Tests 06/16/21 06/16/21 06/16/21 12:32 12:32 12:32 WBC 7.7 RBC 5.05 Hgb 14.8 Hct 43.5 MCV 86.1 MCH 29.3 MCHC 34.0 RDW 13.9 Plt Count 191 MPV 9.6 Neut # (Auto) 3.8 Lymph # (Auto) 2.8 [place] # (Auto) 0.7 Eos # (Auto) 0.3 Baso # (Auto) 0.1 Absolute Nucleated RBC 0.00 Nucleated RBC % 0.0 PT 10.8 INR 1.0 APTT 25.8 Sodium 137 Potassium 4.2 Chloride 101 Carbon Dioxide 27 Anion Gap 9.0 BUN 21 H Creatinine 1.0 Estimated GFR (MDRD) 75 L Glucose 165 H Calcium 8.9 Total Bilirubin 0.9 AST 20 ALT 24 Alkaline Phosphatase 58 Total Protein 7.0 Albumin 3.9 Globulin 3.1 Albumin/Globulin Ratio 1.3 Lipase 30 Nasal Adenovirus (PCR) Nasal B. parapertussis DNA (PCR) Nasal Coronavir 229E PCR Nasal Coronavir HKU1 PCR Nasal Coronavir NL63 PCR Nasal Coronavir OC43 PCR Nasal Enterovir/Rhinovir PCR Nasal Influenza B PCR Nasal Influenza A PCR Nasal Parainfluen 1 PCR Nasal Parainfluen 2 PCR Nasal Parainfluen 3 PCR Nasal Parainfluen 4 PCR Nasal RSV (PCR) Nasal B.pertussis DNA PCR Nasal C.pneumoniae (PCR) Negro Human Metapneumo PCR Nasal M.pneumoniae (PCR) Nasal SARS-CoV-2 (PCR) 06/16/21 13:29 WBC RBC Hgb Hct MCV MCH MCHC RDW Plt Count MPV Neut # (Auto) Lymph # (Auto) [place] # (Auto) Eos # (Auto) Baso # (Auto) Absolute Nucleated RBC Nucleated RBC % PT INR APTT Sodium Potassium Chloride Carbon Dioxide Anion Gap BUN Creatinine Estimated GFR (MDRD) Glucose Calcium Total Bilirubin AST ALT Alkaline Phosphatase Total Protein Albumin Globulin Albumin/Globulin Ratio Lipase Nasal Adenovirus (PCR) NOT DETECTED Nasal B. parapertussis DNA (PCR) NOT DETECTED Nasal Coronavir 229E PCR NOT DETECTED Nasal Coronavir HKU1 PCR NOT DETECTED Nasal Coronavir NL63 PCR NOT DETECTED Nasal Coronavir OC43 PCR NOT DETECTED Nasal Enterovir/Rhinovir PCR NOT DETECTED Nasal Influenza B PCR NOT DETECTED Nasal Influenza A PCR NOT DETECTED Nasal Parainfluen 1 PCR NOT DETECTED Nasal Parainfluen 2 PCR NOT DETECTED Nasal Parainfluen 3 PCR NOT DETECTED Nasal Parainfluen 4 PCR NOT DETECTED Nasal RSV (PCR) NOT DETECTED Nasal B.pertussis DNA PCR NOT DETECTED Nasal C.pneumoniae (PCR) NOT DETECTED Negro Human Metapneumo PCR NOT DETECTED Nasal M.pneumoniae (PCR) NOT DETECTED Nasal SARS-CoV-2 (PCR) NOT DETECTED - Rads (name of study) head Ct Radiology: Final report received, EMP read contemporaneously, See rad report (No acute abnormality) angio head CT Radiology: Final report received, EMP read contemporaneously, See rad report (No significant intracranial arterial abnormalities are seen. ) angio neck CT Radiology: Final report received, EMP read contemporaneously, See rad report (1. No significant arterial abnormality. ) PD MEDICAL DECISION MAKING - ED course Complexity details: reviewed results, re-evaluated patient, considered differential, d/w patient, d/w family, d/w custom decorating consultant ED course: 65-year-old male with strokelike symptoms. NIH stroke scale of 3. Consulted telestroke, Dr. Avery, He personally evaluated the patient and recommends TPA. The patient was consented as well as his . TPA was given. Our hospital does not keep patients here that are post TPA. Therefore the patient will be transferred to [facility] ICU, Dr. Rodgers, graciously accepts in transfer. COBRA forms completed. Patient to be transferred via [facility] due to tPA and potential for ICH. - Critical Care Time(min): 30 Time Includes: Direct patient care, Review records, Reassess patient, Document care, Coordinate care, Medical consult, See progress note Data interpretation: See progress note Procedures included in critical care time: See progress note Procedures excluded from critical care time: See progress note Departure - Departure Disposition: 02 Transfer Acute Care Hosp Clinical Impression: Received intravenous tissue plasminogen activator (tPA) in emergency department Cerebrovascular accident (CVA) Qualifiers: CVA mechanism: unspecified Qualified Code(s): I63.9 - Cerebral infarction, unspecified Condition: Stable
[2021-06-16 12:40] LABS: BASOPHILS # (AUTO) 0.1 10^3/uL (0.0-0.1); BASOPHILS % (AUTO) 0.6 %; EOSINOPHILS # (AUTO) 0.3 10^3/uL (0.0-0.7); EOSINOPHILS % (AUTO) 3.9 %; HCT - HEMATOCRIT 43.5 % (42.0-52.0); HGB - HEMOGLOBIN 14.8 g/dL (14.0-18.0); LYMPHOCYTES # (AUTO) 2.8 10^3/uL (1.5-3.5); MEAN CORPUSCULAR HEMOGLOBIN 29.3 pg (27.0-31.0); MEAN CORPUSCULAR VOLUME 86.1 fL (80.0-94.0); MEAN PLATELET VOLUME 9.6 fL (7.4-11.4); MONOCYTES # (AUTO) 0.7 10^3/uL (0.0-1.0); MONOCYTES % (AUTO) 9.2 %; NEUTROPHILS # (AUTO) 3.8 10^3/uL (1.5-6.6); NEUTROPHILS % (AUTO) 49.8 %; PLT - PLATELET COUNT 191 10^3/uL (130-450); RED BLOOD COUNT 5.05 10^6/uL (4.70-6.10); RED CELL DISTRIBUTION WIDTH 13.9 % (12.0-15.0); WHITE BLOOD COUNT 7.7 x10^3/uL (4.8-10.8)
[2021-06-16 12:51] LABS: PT - PROTHROMBIN TIME 10.8 secs (9.9-12.6)
[2021-06-16 12:57] LABS: ALBUMIN 3.9 g/dL (3.2-5.5); ALBUMIN/GLOBULIN RATIO 1.3 (1.0-2.2); BILIRUBIN,TOTAL 0.9 mg/dL (0.2-1.0); CALCIUM 8.9 mg/dL (8.5-10.3); POTASSIUM 4.2 mmol/L (3.5-5.0)
[2021-06-16 12:59] LABS: PARTIAL THROMBOPLASTIN TIME 25.8 secs (24.9-33.3)
--- NOTE | 2021-06-16 13:04 | CT Report ---
PROCEDURE: Head W/O Stroke Protocol INDICATIONS: aphasia TECHNIQUE: Noncontrast 4.5 mm thick angled axial sections acquired from the foramen magnum to the vertex, with c oronal reformats. For radiation dose reduction, the following was used: automated exposure control, adjustment of mA and/or kV according to patient size. COMPARISON: FINDINGS: Image quality: There is streak artifact seen through the skull base. CSF spaces: Basal cisterns are patent. No extra-axial fluid collections. Ventricles are normal in size and shape. Brain: No midline shift. No intracranial masses or hemorrhage. [place]-white matter interface is norm al. Skull and face: Calvarium and visualized facial bones are intact, without suspicious lesions. Sinuses: Visualized sinuses and mastoids are clear. IMPRESSION: No intracranial hemorrhage is seen. Note: Case discussed by telephone with Dr. Mars at 12:01 PM [place] time on 06/16/2021. This study fulfills neurological imaging criteria for inclusion or exclusion of acute stroke therapie s based on available published neurological imaging guidelines. Reviewed by: Neo John MD on 06/16/2021 12:03 PM [facility] Approved by: Neo John MD on 06/16/2021 12:03 PM [facility] Station ID: [id number]
[2021-06-16] MEDS ORDERED: ALTEPLASE 81 MG in WATER FOR INJECTION,STERILE 81 ML IV STA (13:11)
[2021-06-16] MEDS ORDERED: ALTEPLASE 100 MG VIAL IV STA (13:12)
[2021-06-16] MEDS ORDERED: IOVERSOL 320 100 ML VIAL IVP ONE ×2 (13:50→14:09)
--- NOTE | 2021-06-16 14:13 | CT Report ---
PROCEDURE: ANGIO HEAD W/WO INDICATIONS: aphasia CONTRAST: IV CONTRAST: Optiray 320 ml: 80 PO CONTRAST: *NO PO CONTRAST TECHNIQUE: Precontrast 4.5 mm thick angled axial sections acquired from the foramen magnum to the vertex. Afte r the administration of intravenous contrast, 1 mm thick sections acquired through the [place] is. Postcontrast 4.5 mm thick sections then re-acquired from the foramen magnum to the vertex. 3-di mensional skaslkh-nckvrwjzp-dfqtvuuujx (MIP) and/or volume rendering reformats were acquired of the c entral intracranial vasculature. For radiation dose reduction, the following was used: automated ex posure control, adjustment of mA and/or kV according to patient size. COMPARISON: Correlation is made with the accompanying neck CT angiogram and noncontrast head CT, 05/31. FINDINGS: Image quality: Excellent. Anterior circulation: Intracranial internal carotid arteries are normal in size and flow. The flow within the paired anterior cerebral arteries is normal and symmetric. The flow within the middle cer ebral arteries is normal and symmetric. The anterior communicating artery is seen. No aneurysms are seen. Posterior circulation: Visualized portions of the vertebral arteries demonstrate normal caliber, and join to form a normal appearing basilar artery. Incidental note is made of a prominent left posteri or communicating artery, with a diminutive left P1 segment. This is attributed to a type origin of the left posterior cerebral artery, which is considered to be a developmental variant of typicall y no clinical consequence. Flow within the posterior cerebral arteries is normal and symmetric. No aneurysms are seen. CSF spaces: Ventricles are normal in size and shape. Basal cisterns are patent. No extra-axial flu id collections. Brain: No midline shift. No intracranial bleeds or masses. [place]-white matter interface appears int act. Skull and face: Calvarium and facial bones appear intact, without suspicious lesions. Sinuses: Visualized sinuses and mastoids are clear. IMPRESSION: No significant intracranial arterial abnormalities are seen. Reviewed by: Neo John MD on 06/16/2021 1:12 PM [facility] Approved by: Neo John MD on 06/16/2021 1:12 PM [facility] Station ID: [id number]
[2021-06-16] MEDS ORDERED: SODIUM CHLORIDE 0.9% 1,000 ML IV STA (14:18)
[2021-06-16 14:27] LABS: B. PARAPERTUSSIS- RESP PCR PAN NOT DETECTED; B. PERTUSSIS- RESP PCR PANEL NOT DETECTED; C. PNEUMONIAE- RESP PCR PANEL NOT DETECTED; CORONAVIRUS 229E-RESP PCR NOT DETECTED; CORONAVIRUS HKU1-RESP PCR NOT DETECTED; CORONAVIRUS NL63-RESP PCR NOT DETECTED; CORONAVIRUS OC43-RESP PCR NOT DETECTED; HUMAN METAPNEUMOVIRUS NOT DETECTED; INFLUENZA A- RESP PCR PANEL NOT DETECTED; INFLUENZA B - RESP PCR PANEL NOT DETECTED; M. PNEUMONIAE- RESP PCR PANEL NOT DETECTED; PARAINFLUENZA VIRUS 1 NOT DETECTED; PARAINFLUENZA VIRUS 2 NOT DETECTED; PARAINFLUENZA VIRUS 3 NOT DETECTED; PARAINFLUENZA VIRUS 4 NOT DETECTED; RHINOVIRUS/ENTEROVIRUS NOT DETECTED; RSV- RESP PCR PANEL NOT DETECTED; SARS-CoV-2 -RESP PCR PANEL NOT DETECTED
--- NOTE | 2021-06-16 14:35 | CT Report ---
PROCEDURE: ANGIO NECK W INDICATIONS: aphasia CONTRAST: IV CONTRAST: Optiray 320 ml: 80 PO CONTRAST: *NO PO CONTRAST TECHNIQUE: After the administration of intravenous contrast, 1.5 mm axial sections acquired from the aortic arch to the [place]. Coronal 3-D maximum intensity projection (MIP) and/or volume rendering ref ormats were then performed. For radiation dose reduction, the following was used: automated exposur e control, adjustment of mA and/or kV according to patient size. COMPARISON: None. FINDINGS: Image quality: Excellent. Carotid system: The great vessels demonstrate a conventional anatomy as they arise from the aortic a rc. The origins of the common carotid arteries appear patent. The common carotid arteries demonstr ate normal calibers and courses. The bifurcation regions appear normal bilaterally. The internal ca rotid arteries demonstrate normal caliber and course. Posterior circulation: The origins of the vertebral arteries appear patent. The more superior porti ons of the vertebral arteries demonstrate normal course and caliber. They join to form a normal appe aring basilar artery. Soft tissues: Visualized neck soft tissues demonstrate no suspicious abnormalities. Suspected bilate ral parotid gland lymph nodes. The thyroid is normal in size and there are no incidental findings. Bones: No suspicious bony lesions. Multifocal degenerative change of the cervical spine. IMPRESSION: 1. No significant arterial abnormality. The estimate of stenosis included in the report of the imaging study was calculated using the NASCET method CLINICAL RECOMMENDATION STATEMENTS: In patients <35 years with an ITN detected on CT, MRI, or extrathyroidal ultrasound, the Committee re commends further evaluation with dedicated thyroid ultrasound if the nodule is "e1 cm and has no susp icious imaging features, and if the patient has normal life expectancy. In patients "e35 years with an ITN detected on CT, MRI, or extrathyroidal ultrasound, the Committee r ecommends further evaluation with dedicated thyroid ultrasound if the nodule is "e1.5 cm and has no s uspicious imaging features, and if the patient has normal life expectancy. (ACR, 2014) Reviewed by: Nick Wells MD on 06/16/2021 2:34 PM PDT Approved by: Nick Wells MD on 06/16/2021 2:34 PM PDT Station ID: [id number]
[2021-06-16 15:39] VITALS: BP 163/96
[2021-06-16 15:50] LABS: BILIRUBIN,URINE NEGATIVE (NEGATIVE); GLUCOSE, URINE (UA) NEGATIVE (NEGATIVE); KETONES,URINE (UA) NEGATIVE (NEGATIVE); LEUKOCYTE ESTERASE, URINE NEGATIVE (NEGATIVE); NITRITE,URINE NEGATIVE (NEGATIVE); OCCULT BLOOD,URINE NEGATIVE (NEGATIVE); PROTEIN,URINE NEGATIVE (NEGATIVE); UROBILINOGEN,URINE 0.2 (NORMAL) E.U./dL (NORMAL)
[2021-06-16 15:53] LABS: CLARITY,URINE CLEAR (CLEAR)
== END 2021-06-16 15:48 | disposition short-term general hospital (02) ==
LOC: ED 12:09
DX: I63.9 Cerebral infarction, unspecified (principal); R29.703 NIHSS score 3; I10 Essential (primary) hypertension; E11.9 Type 2 diabetes mellitus without complications; Z79.84 Long term (current) use of oral hypoglycemic drugs
CPT/HCPCS: 36415; 37195; 70450; 70496; 70498; 80053; 81003; 83690; 85025; 85610; 85730; 87633; 93005; 99285; 99291; J2997; Q9967; 81001; 87086

== ENCOUNTER 2021-06-21 19:08 | Emergency (ER) | payer OTHER ==
--- OUTSIDE RECORDS SUMMARY | 2021-06-21 19:28 | EXTERNAL MEDICAL SUMMARY RPT | Continuity of Care Document ---
:1955 Author Organization [facility] Address [address] [place] [address] Phone Allergies No information. Encounters No information. Medications No information. Problems date description facility 20210616 Type 2 diabetes mellitus without [facility] complications 20210616 Status post administration of tPA (rtPA) [facility] in a different facility within the last 24 hours prior to admission to current facility [id number] Other lacunar syndromes [facility] 20210616 Essential (primary) hypertension [facility] [id number] Cerebral infarction, unspecified [facility] [id number] CVA [facility] Results No information.
--- NOTE | 2021-06-21 19:35 | ED Physician Documentation ---
PD HPI [facility] - Stated complaint Stated Complaint: NUMB ON RIGHT SIDE/POST HOSPITAL FOR STROKE - Chief complaint Chief Complaint: Neuro - Additional information Additional information: Patient is 65-year-old male presenting to the emergency department with right- sided facial droop, slurred speech and right upper extremity numbness. Was seen here 06/16/2021 with similar symptoms. Received tPA at that time and was transferred to [facility] for further evaluation and treatment. Reports subsequently underwent MRI at [facility], was told that he had had a stroke, and was started on medications. Reports that at time of discharge, yesterday from [facility] he did have some mild facial numbness and slurred speech however earlier today all of his symptoms began markedly worse. He otherwise denies for any fever, chills, chest pain, shortness of breath, abdominal pain, nausea, vomiting, diarrhea, constipation. Review of Systems Ten Systems: 10 systems reviewed and negative Constitutional: denies: Fever Eyes: denies: Loss of vision Ears: denies: Loss of hearing Nose: denies: Rhinorrhea / runny nose Cardiac: denies: Chest pain / pressure Respiratory: denies: Dyspnea GI: denies: Abdominal Pain : denies: Dysuria Skin: denies: Rash Musculoskeletal: denies: Neck pain Neurologic: reports: Numbness, Difficulty speaking Psychiatric: denies: Depressed PD PAST MEDICAL HISTORY - Past Medical History Cardiovascular: Hypertension, High cholesterol Respiratory: None Endocrine/Autoimmune: Type 2 diabetes GI: None : None HEENT: Chronic vision loss, Chronic sinusitis Psych: None Musculoskeletal: None Derm: None - Past Surgical History General: Appendectomy - Present Medications Home Medications: Ambulatory Orders Medication Instructions Recorded Confirmed Budesonide/Formoterol Fumarate 2 gm IH BID PRN 11/26/12 04/16/15 [Symbicort 160-4.5 Mcg Inhaler] Metformin HCl 500 mg PO DAILY 11/26/12 06/16/21 Losartan Potassium 50 mg PO DAILY 04/16/15 06/16/21 Meloxicam 7.5 mg PO BID 04/16/15 06/16/21 Rosuvastatin Calcium [Crestor] 2.5 mg PO DAILY 04/16/15 06/16/21 HYDROcod/ACETAM 5/325 [[place] 5/325] 1 - 2 ea PO Q6H PRN #10 tablet 11/27/15 Glimepiride [Amaryl] 2 mg PO 0800 06/16/21 06/16/21 Ubidecarenone [Co Q-10] 06/16/21 - Allergies Allergies/Adverse Reactions: Allergies Allergy/AdvReac Type Severity Reaction Status Date / Time poultry Allergy Severe Anaphylaxis Uncoded 06/21/21 19:25 - Social History Does the pt smoke?: No Smoking Status: Never smoker Does the pt drink ETOH?: Yes Does the pt have substance abuse?: No - Immunizations Immunizations are current?: No Immunizations: TDAP >10years/unknown, Other immun current - POLST Patient has POLST: No PD ED PE NORMAL - General General: Alert and oriented X 3 - HEENT HEENT: Atraumatic - Neck Neck: Supple, no meningeal sign - Cardiac Cardiac: RRR, No gallop - Respiratory Respiratory: No respiratory distress, Clear bilaterally - Abdomen Abdomen: Normal bowel sounds - Male Male : Deferred - Rectal Rectal: Deferred - Back Back: No CVA TTP PD ED PE EXPANDED - Neuro Neuro: Alert and Oriented X 3, Right face (Facial droop sparing forehead), RUE (Numbness), Dysarthria (Mild) NIHSS - Level of Consciousness Level of consciousness: (0) Alert, Keenly responsive LOC Questions: (0) Answers both Q's correct - Gaze Best Gaze: (0) Normal - Visual Visual: (0) No loss - Facial Palsy Facial Palsy: (1) Minor paralysis - Motor Arms (both separate) Motor Arm (right): (0) No drift Motor Arm (left): (0) No drift - Motor Legs (both separate) Motor Leg (right): (0) No drift Motor Leg (left): (0) No drift - Limb Ataxia Limb Ataxia: (0) Absent - Sensory Sensory: (1) Mrtx-kv-twxrllpo loss - Best Language Best Language: (0) No aphasia - Dysarthria Dysarthria: (1) Lzrl-jk-ofaljjls dysarthria - Extinction and Inattention (formally neg Extinction and inattention: (0) No abnormality Results - Vitals Vitals: Vital Signs - 24 hr 06/21/21 06/21/21 06/21/21 19:20 20:25 23:00 Temperature 36.3 C L Heart Rate 76 76 75 Respiratory 16 22 15 Rate Blood Pressure 143/71 H 126/100 H O2 Saturation 98 99 99 06/22/21 00:18 Temperature 36.6 C Heart Rate 78 Respiratory 14 Rate Blood Pressure 118/78 O2 Saturation 98 Oxygen O2 Source Room air - EKG (time done) 1934 Rate: Rate (enter#) (79) Rhythm: NSR Huggins: Normal Intervals: Normal FL QRS: Normal Ischemia: Normal ST segments Compare to prior EKG: Unchanged from prior EKG - Labs Labs: Laboratory Tests 06/21/21 06/21/21 06/21/21 20:14 20:14 23:00 WBC 10.2 RBC 4.83 Hgb 14.4 Hct 41.8 L MCV 86.5 MCH 29.8 MCHC 34.4 RDW 13.7 Plt Count 195 MPV 9.7 Neut # (Auto) 5.8 Lymph # (Auto) 3.1 Ceiba # (Auto) 0.9 Eos # (Auto) 0.4 Baso # (Auto) 0.1 Absolute Nucleated RBC 0.00 Nucleated RBC % 0.0 Sodium 137 Potassium 3.8 Chloride 101 Carbon Dioxide 26 Anion Gap 10.0 BUN 23 H Creatinine 1.2 Estimated GFR (MDRD) 61 L Glucose 130 H Calcium 8.8 Total Bilirubin 0.7 AST 38 ALT 41 Alkaline Phosphatase 66 Total Protein 6.8 Albumin 3.6 Globulin 3.2 Albumin/Globulin Ratio 1.1 Lipase 31 SARS-CoV-2 (PCR) NOT DETECTED PD MEDICAL DECISION MAKING - ED course Complexity details: reviewed old records, reviewed results, re-evaluated patient, considered differential, d/w patient, d/w family, d/w cycle consultant ED course: Patient is 65-year-old male presenting to the emergency department with right- sided facial droop, mild dysarthria and right upper extremity numbness. Was seen here 06/16 with similar symptoms, at that time received tPA and was sent to [facility] for evaluation and treatment. Last known well was approximately 7 PM. Patient did arrive inside of the window for thrombolytics however given his recent ischemic stroke and use of thrombolytics he is not a candidate for this intervention. I did obtain comprehensive imaging including CT of his head as well as CTA of his head and the vasculature of his neck. This demonstrated stenosis to the internal carotid arteries bilaterally but was otherwise nonacute and no retrievable thrombus was identified. Comprehensive labs obtained were all within normal limits are generally nonactionable. His care was discussed with the neurologist on-call at [facility] Dr. Chen, Who did recommend transfer to a facility with MRI capability. Stating that patient's most recent work-up at [facility] was comprehensive and that MRI would be needed to delineate If this was a new stroke event. Unfortunately MRIs not available at our facility for the next several days. [facility] reported that they would be unable to accommodate this patient as they are boarding multiple patients in their emergency department.Similarly multiple hospitals were contacted up and down the [address] including [facility], [facility],And [facility]. [facility] did report that they would be able to accept the patient in transfer however they also stated that they were Boarding multiple patients in the emergency department and that at this time the wait time for MRI from the ER ranged from 24 to 72 hours. I did have a detailed explicit conversation with the patient as well as the patient's Which included all of the exam findings identified in the emergency room today as well as the recommendation of the neurologic team from [facility] and the limited availability of MRI regionally at this time. They were offered boarding here in the emergency department until Thursday and MRI were available here at our facility. Additionally they were offered transfer to [facility] with the understanding that they may experience an extended delay awaiting MRI at that facility. After discussing the matter amongst themselves they reported that they wished to leave the emergency department and follow-up with their neurologist on an outpatient basis. I did discuss with them the possibility that this would result in delay of a meaningful diagnosis and could result in a delay Or loss of opportunity to treat his condition which could worsen. They verbalized understanding of this and nevertheless requested to be discharged from the emergency department. They were encouraged to follow-up with Primary care and neurology and/or to return to the emergency department for any new or worsening symptoms. Departure - Departure Disposition: 01 Home, Self Care Clinical Impression: Cerebrovascular accident (CVA) Comments: Thank you for allowing us the opportunity to care for you this evening at [facility]. I like to personally thank both of you for your patients with us in the emergency department. The testing that was performed here in the emergency department including your blood work, EKG and the CT scan of your head and the blood vessels in your neck was all very reassuring. I did not identify any eminent emergent or life- threatening cause of your symptoms. I did discuss your care with the neurologic team at [facility] however and they did recommend that you receive an MRI. I am very sorry that this services not easily acquired at this time. As you know we contacted many hospitals up and down the [facility] and within the region and none had the ability to provide an MRI in a timely fashion. I do understand your decision to leave the emergency department at this time and I would like to encourage you to continue all of your current medications as well as to continue to follow with your outpatient neurology team and your primary care doctor as soon as possible. I like you to know that if at anytime you change your mind or if you have any new or worsening symptoms you are always welcome to return here to the emergency department. Discharge Date/Time: 06/22/21 00:18
[2021-06-21] MEDS ORDERED: IOVERSOL 320 50 ML VIAL ONE (19:55)
--- NOTE | 2021-06-21 20:07 | CT Report ---
PROCEDURE: Head W/O Stroke Protocol INDICATIONS: Neuro deficit, acute, stroke suspected TECHNIQUE: Noncontrast 4.5 mm thick angled axial sections acquired from the foramen magnum to the vertex, with c oronal reformats. For radiation dose reduction, the following was used: automated exposure control, adjustment of mA and/or kV according to patient size. COMPARISON: Head CT 06/16/2021. FINDINGS: Image quality: Excellent. CSF spaces: Basal cisterns are patent. No extra-axial fluid collections. Ventricles are normal in size and shape. Brain: No midline shift. No intracranial masses or hemorrhage. No area of hypodensity in a vascula r distribution to suggest acute infarction. There is periventricular hypodensity consistent with wood heel attacher yong microvascular ischemic disease. Age-related parenchymal loss. No interval change appreciated. Skull and face: Calvarium and visualized facial bones are intact, without suspicious lesions. Sinuses: Visualized sinuses and mastoids are clear. IMPRESSION: No acute intracranial abnormality and a 5. Results were communicated to Dr. Cristian Montgomery at 06/21/2021 8:05 PM PDT. This study fulfills neurological imaging criteria for inclusion or exclusion of acute stroke therapie s based on available published neurological imaging guidelines. Reviewed by: Waldo Gomez MD on 06/21/2021 8:05 PM PDT Approved by: Waldo Gomez MD on 06/21/2021 8:05 PM PDT Station ID: [id number]
[2021-06-21 20:20] LABS: BASOPHILS # (AUTO) 0.1 10^3/uL (0.0-0.1); BASOPHILS % (AUTO) 0.5 %; EOSINOPHILS # (AUTO) 0.4 10^3/uL (0.0-0.7); EOSINOPHILS % (AUTO) 3.4 %; HCT - HEMATOCRIT 41.8 % (42.0-52.0); HGB - HEMOGLOBIN 14.4 g/dL (14.0-18.0); LYMPHOCYTES # (AUTO) 3.1 10^3/uL (1.5-3.5); MEAN CORPUSCULAR HEMOGLOBIN 29.8 pg (27.0-31.0); MEAN CORPUSCULAR HGB CONC 34.4 g/dL (32.0-36.0); MEAN CORPUSCULAR VOLUME 86.5 fL (80.0-94.0); MEAN PLATELET VOLUME 9.7 fL (7.4-11.4); MONOCYTES # (AUTO) 0.9 10^3/uL (0.0-1.0); MONOCYTES % (AUTO) 9.1 %; NEUTROPHILS # (AUTO) 5.8 10^3/uL (1.5-6.6); NEUTROPHILS % (AUTO) 56.4 %; PLT - PLATELET COUNT 195 10^3/uL (130-450); RED BLOOD COUNT 4.83 10^6/uL (4.70-6.10); RED CELL DISTRIBUTION WIDTH 13.7 % (12.0-15.0); WHITE BLOOD COUNT 10.2 x10^3/uL (4.8-10.8)
--- NOTE | 2021-06-21 20:31 | CT Report ---
PROCEDURE: ANGIO HEAD W/WO INDICATIONS: CVA CONTRAST: IV CONTRAST: Optiray 320 ml: 100 PO CONTRAST: *NO PO CONTRAST TECHNIQUE: Precontrast 4.5 mm thick angled axial sections acquired from the foramen magnum to the vertex. Afte r the administration of intravenous contrast, 1 mm thick sections acquired through the [place] of [place] is. Postcontrast 4.5 mm thick sections then re-acquired from the foramen magnum to the vertex. 3-di mensional xolwmmi-cxxugmsrw-gfjhirtgvv (MIP) and/or volume rendering reformats were acquired of the c entral intracranial vasculature. For radiation dose reduction, the following was used: automated ex posure control, adjustment of mA and/or kV according to patient size. COMPARISON: Same day noncontrast head CT and CTA neck. CTA head neck 06/16/2021. FINDINGS: Image quality: Excellent. Anterior circulation: Intracranial internal carotid arteries are normal in size and flow. The flow within the paired anterior cerebral arteries is normal and symmetric. The flow within the middle cer ebral arteries is normal and symmetric. The anterior communicating artery is seen. No aneurysms are seen. Posterior circulation: Visualized portions of the vertebral arteries demonstrate normal caliber, and join to form a normal appearing basilar artery. origin of the left PROFILING MACHINE SET UP OPERATOR variant anatomy. Flow within the posterior cerebral arteries is normal and symmetric. No aneurysms are seen. CSF spaces: Ventricles are normal in size and shape. Basal cisterns are patent. No extra-axial flu id collections. Brain: No midline shift. No intracranial bleeds or masses. [place]-white matter interface appears int act. Skull and face: Calvarium and facial bones appear intact, without suspicious lesions. Sinuses: Visualized sinuses and mastoids are clear. IMPRESSION: No large vessel occlusion. origin of the left PROFILING MACHINE SET UP OPERATOR, variant anatomy. Reviewed by: Waldo Gomez MD on 06/21/2021 8:30 PM PDT Approved by: Waldo Gomez MD on 06/21/2021 8:30 PM PDT Station ID: [id number]
[2021-06-21 20:33] LABS: ALBUMIN 3.6 g/dL (3.2-5.5); ALBUMIN/GLOBULIN RATIO 1.1 (1.0-2.2); BILIRUBIN,TOTAL 0.7 mg/dL (0.2-1.0); CALCIUM 8.8 mg/dL (8.5-10.3); CREATININE 1.2 mg/dL (0.6-1.2); POTASSIUM 3.8 mmol/L (3.5-5.0); TOTAL PROTEIN 6.8 g/dL (6.7-8.2)
--- NOTE | 2021-06-21 20:40 | CT Report ---
PROCEDURE: ANGIO NECK W INDICATIONS: CVA CONTRAST: IV CONTRAST: Optiray 320 ml: 100 PO CONTRAST: *NO PO CONTRAST TECHNIQUE: After the administration of intravenous contrast, 1.5 mm axial sections acquired from the aortic arch to the [place] of [place]. Coronal 3-D maximum intensity projection (MIP) and/or volume rendering ref ormats were then performed. For radiation dose reduction, the following was used: automated exposur e control, adjustment of mA and/or kV according to patient size. COMPARISON: CTA neck 06/16/2021. FINDINGS: Image quality: Excellent. Carotid system: Left CCA originates off of the brachiocephalic artery, variant. The origins of the co mmon carotid arteries appear patent. The common carotid arteries demonstrate normal calibers and cou rses. There is 50% stenosis of the right ICA, (5/116). There is 50% stenosis of the left ICA, (4/116) . There is very subtle calcified plaque at the left ICA. The majority of the plaque is noncalcified. Posterior circulation: The origins of the vertebral arteries appear patent. The more superior porti ons of the vertebral arteries demonstrate normal course and caliber. They join to form a normal appe aring basilar artery. Soft tissues: Visualized neck soft tissues demonstrate no suspicious abnormalities. The thyroid is normal in size and there are no incidental findings. Bones: No suspicious bony lesions. Mild to moderate degenerative change in the cervical spine. Visua lized cervical spine appears normally aligned. IMPRESSION: 1. No large vessel occlusion. 2. 50% stenosis in the right ICA and left ICA. Consider further evaluation of the carotid arteries with duplex ultrasound. Results were communicated to Dr. Cristian Montgomery at 06/21/2021 8:38 PM PDT. The estimate of stenosis included in the report of the imaging study was calculated using the NASCET method Reviewed by: Waldo Gomez MD on 06/21/2021 8:39 PM PDT Approved by: Waldo Gomez MD on 06/21/2021 8:39 PM PDT Station ID: [id number]
[2021-06-21] MEDS: IOVERSOL 320 50 ML VIAL IVP ONE (21:18)
[2021-06-22 00:22] VITALS: BP 118/78
== END 2021-06-22 00:18 | disposition home or self-care (01) ==
LOC: ED 19:08
DX: I63.233 Cerebral infarction due to unspecified occlusion or stenosis of bilateral carotid arteries (principal); E11.9 Type 2 diabetes mellitus without complications; I10 Essential (primary) hypertension; Z20.822 Contact with and (suspected) exposure to COVID-19
CPT/HCPCS: 36415; 80053; 83690; 85025; 93005; 99284

== ENCOUNTER 2021-07-12 14:28 | Outpatient (CLI) | payer OTHER | END 2021-07-12 14:29 | disposition home or self-care (01) | LOC: MAC.MOP 14:28 | PROVIDERS: ATTEND Family Medicine | DX: I63.9 Cerebral infarction, unspecified (principal) | CPT/HCPCS: 93246 ==

== ENCOUNTER → 2021-08-01 | Outpatient (CLI) | payer OTHER | LOC: MAC.MOP 10:30 | PROVIDERS: ATTEND Family Medicine | DX: I45.4 Nonspecific intraventricular block (principal); I44.0 Atrioventricular block, first degree; I47.1 Supraventricular tachycardia; I44.1 Atrioventricular block, second degree; I49.1 Atrial premature depolarization; I49.3 Ventricular premature depolarization | CPT/HCPCS: 93248 ==

== ENCOUNTER 2021-09-06 10:26 | Outpatient (CLI) | payer OTHER ==
[2021-09-06 11:01] LABS: ALBUMIN 3.9 g/dL (3.2-5.5); ALBUMIN/GLOBULIN RATIO 1.1 (1.0-2.2); ALKALINE PHOSPHATASE 80 IU/L (42-121); ALT ALANINE AMINOTRANSFERASE 23 IU/L (10-60); AST ASPARTATE AMINOTRANSFERASE 18 IU/L (10-42); BILIRUBIN,TOTAL 0.9 mg/dL (0.2-1.0); BUN - BLOOD UREA NITROGEN 16 mg/dL (6-20); CALCIUM 9.2 mg/dL (8.5-10.3); CARBON DIOXIDE - CO2 27 mmol/L (21-32); CHLORIDE 102 mmol/L (101-111); CHOL/HDL RATIO 4.5 (<5.0); CHOLESTEROL 161 mg/dL; CREATININE 0.9 mg/dL (0.6-1.2); GFR - MDRD 85 (>89); GLUCOSE 170 mg/dL (70-100); HDL CHOLESTEROL 36 mg/dL; LDL CHOLESTEROL,CALCULATED 98 mg/dL; LDL/HDL RATIO 2.7 (<3.6); SODIUM 138 mmol/L (135-145); TOTAL PROTEIN 7.3 g/dL (6.7-8.2); TRIGLYCERIDES 136 mg/dL; VLDL CHOLESTEROL 27 mg/dL
[2021-09-06 12:50] LABS: ESTIMATED AVERAGE GLUCOSE 146 mg/dL (70-100); HEMOGLOBIN A1c% 6.7 % (4.27-6.07)
== END 2021-09-06 10:27 | disposition home or self-care (01) ==
LOC: LAB 10:26
PROVIDERS: ATTEND Physician Assistant Medical
DX: E11.9 Type 2 diabetes mellitus without complications (principal)
CPT/HCPCS: 36415; 80053; 80061; 83036; 83721

== ENCOUNTER 2021-12-21 10:21 | Outpatient (CLI) | payer OTHER ==
[2021-12-21 10:43] LABS: POTASSIUM 4.4 mmol/L (3.5-5.0)
[2021-12-21 13:51] LABS: ESTIMATED AVERAGE GLUCOSE 154 mg/dL (70-100)
== END 2021-12-21 10:22 | disposition home or self-care (01) ==
LOC: LAB 10:21
PROVIDERS: ATTEND Physician Assistant Medical
DX: E11.9 Type 2 diabetes mellitus without complications (principal)
CPT/HCPCS: 36415; 80048; 83036

== ENCOUNTER 2022-02-11 08:00 | Outpatient (CLI) | payer OTHER ==
[2022-02-11 16:21] LABS: BASOPHILS # (AUTO) 0.1 10^3/uL (0.0-0.1); BASOPHILS % (AUTO) 0.7 %; EOSINOPHILS # (AUTO) 0.2 10^3/uL (0.0-0.7); EOSINOPHILS % (AUTO) 2.4 %; HCT - HEMATOCRIT 44.6 % (42.0-52.0); HGB - HEMOGLOBIN 15.1 g/dL (14.0-18.0); LYMPHOCYTES # (AUTO) 3.2 10^3/uL (1.5-3.5); LYMPHOCYTES % (AUTO) 36.8 %; MEAN CORPUSCULAR HEMOGLOBIN 29.9 pg (27.0-31.0); MEAN CORPUSCULAR HGB CONC 33.9 g/dL (32.0-36.0); MEAN CORPUSCULAR VOLUME 88.3 fL (80.0-94.0); MEAN PLATELET VOLUME 9.9 fL (7.4-11.4); MONOCYTES # (AUTO) 0.7 10^3/uL (0.0-1.0); MONOCYTES % (AUTO) 7.8 %; NEUTROPHILS # (AUTO) 4.5 10^3/uL (1.5-6.6); NEUTROPHILS % (AUTO) 51.7 %; PLT - PLATELET COUNT 262 10^3/uL (130-450); RED BLOOD COUNT 5.05 10^6/uL (4.70-6.10); RED CELL DISTRIBUTION WIDTH 14.1 % (12.0-15.0); WHITE BLOOD COUNT 8.7 x10^3/uL (4.8-10.8)
[2022-02-11 16:37] LABS: PSA TOTAL 0.45 ng/mL (0.000-2.000)
[2022-02-11 16:47] LABS: ALBUMIN 3.8 g/dL (3.2-5.5); ALBUMIN/GLOBULIN RATIO 1.1 (1.0-2.2); ALKALINE PHOSPHATASE 66 IU/L (42-121); ALT ALANINE AMINOTRANSFERASE 22 IU/L (10-60); AST ASPARTATE AMINOTRANSFERASE 18 IU/L (10-42); BILIRUBIN,TOTAL 0.6 mg/dL (0.2-1.0); BUN - BLOOD UREA NITROGEN 19 mg/dL (6-20); CARBON DIOXIDE - CO2 26 mmol/L (21-32); CHLORIDE 102 mmol/L (101-111); CHOLESTEROL 180 mg/dL; CK- CREATINE KINASE 45 IU/L (22-269); GFR - MDRD 75 (>89); GLUCOSE 212 mg/dL (70-100); HDL CHOLESTEROL 45 mg/dL; LDL CHOLESTEROL,CALCULATED 100 mg/dL; LDL/HDL RATIO 2.2 (<3.6); POTASSIUM 4.1 mmol/L (3.5-5.0); SODIUM 138 mmol/L (135-145); TOTAL PROTEIN 7.3 g/dL (6.7-8.2); TRIGLYCERIDES 176 mg/dL; VLDL CHOLESTEROL 35 mg/dL
[2022-02-11 16:52] LABS: CREATININE,URINE 90.2 mg/dL; MICROALBUM/CREATININE RATIO,UR 2.2 ug/mg (<30.0); MICROALBUMIN,URINE 0.2 mg/dL (0-300.0); THYROID STIMULATING HORMONE 1.61 uIU/mL (0.34-5.60)
[2022-02-11 21:18] LABS: ESTIMATED AVERAGE GLUCOSE 166 mg/dL (70-100); HEMOGLOBIN A1c% 7.4 % (4.27-6.07)
[2022-02-13 02:08] LABS: HCV AB <0.1 s/co ratio (0.0-0.9)
== END 2022-02-11 23:59 | disposition home or self-care (01) ==
LOC: LAB.R 08:00
PROVIDERS: ATTEND Internal Medicine
DX: Z00.00 Encounter for general adult medical examination without abnormal findings (principal); I63.9 Cerebral infarction, unspecified; E11.9 Type 2 diabetes mellitus without complications; E78.5 Hyperlipidemia, unspecified; R35.1 Nocturia; M19.90 Unspecified osteoarthritis, unspecified site; Z86.16 Personal history of COVID-19; J32.9 Chronic sinusitis, unspecified; R06.83 Snoring; Z11.59 Encounter for screening for other viral diseases; Z79.899 Other long term (current) drug therapy
CPT/HCPCS: 80053; 80061; 82043; 82550; 82570; 82607; 83036; 83721; 84153; 84443; 85025; 86803

== ENCOUNTER 2022-03-27 09:05 | Outpatient (CLI) | payer OTHER ==
--- NOTE | 2022-03-27 10:10 | SLEEP CARE CONSULTATION ---
Information from patient questionnaire entered by Cory Smith. I have reviewed and concur with the information entered by Cory Smith. This document represents the service I personally performed and the decisions made by me, Christy Taylor ARNP. History of Present Illness Service Date and Time: 03/27/2022 0905 Reason for Visit: New patient Chief Complaint: reports: Unrefreshed sleep, Snoring, Excessive daytime sleepiness, Fatigue, Frequent awakenings at night Date of Onset: 5+YRS Usual bedtime: 11PM Time it takes to fall asleep: VARIES Snores at night: Yes Observed to quit breathing while asleep: No Sleeps alone due to snoring: No Number of times waking at night: 2-6 Reasons for waking at night: reports: Snoring (and dry mouth), Pain, Bathroom, Other (DREAMS). denies: Choking, Gasping for air Toss, Turn, or Twitch while sleeping: Yes Recalls having dreams: Yes Usually gets out of bed at: 8-9AM Feels refreshed in the morning: No Morning headache: Yes (1-2 times a week since taking tylenol/benadrylRESOLVES MOSTLY IN A FEW MIN ) Sleepy or fatigued during the day: Yes Ever fallen asleep while driving: Yes (little drowsy at first of shift in morning; no accidents) Takes day naps: No Prior sleep studies: No Additional HPI information: I had the pleasure of seeing ABRAHAM MONTANO today regarding the possibility of him having a sleep disorder. His current complaints are excessive daytime sleepine ss, fatigue, frequent night awakenings, snoring, morning headaches and unrefreshed sleep. He states he used to go to sleep quickly and sleep for about 7 hours but as he has gotten older things are changed. He states now he falls asleep in about 20-30 minutes. He states in the last 5-6 years he is waking up frequently at night. He wakes up due to pain in joints and sinus issues. He also has dogs that wakes him up and his reading in bed at night. He states he had a stroke May 2021. 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 - Parasomnia Symptoms Ever been unable to move upon waking from sleep: No Walks in sleep: No Talks in sleep: No Ever acted out dreams in sleep: No Ever felt weak in the knees when startled or emotional: No Bothered by creepy, crawly, restless sensations in legs: Yes (when first goes to bed, legs not comfortable) Problems with memory or concentration: Yes (memory worse since his stroke) Subjective Initial [place] Sleepiness Scale score: 9 (03/07/22) Past Medical History Past Medical History: reports: Hypertension, Diabetes, Stroke, Arthritis, Other (STROKE 06/16/21, HYPERLIPIDEMIA ) Social History 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 Patient is and lives in [place]. Have you smoked in the past 12 months: No Alcohol use: Yes Alcohol amount and frequency: 1-2 A WEEK Caffeine use: Yes Caffeine amount and frequency: 2-3 EACH DAY Family History Family history of sleep disordered breathing: No Allergies and Home Medications Known drug allergies: Yes (STATINS) Drug allergies reviewed: Yes Home medication list reviewed: Yes Allergy and home medication list: Medications: Repatha injections Metformin Glimeprimide Clopidogrel CoQ 10 Tylenol Benadryl Review of Systems Weight loss over past 5 years: 20 Cardiovascular: reports: high blood pressure, leg or foot swelling Respiratory: reports: wheeze, chronic cough Gastrointestinal: reports: diarrhea Neurological: reports: headaches Psychiatric: denies: anxiety, depression Ear/Nose/Throat: reports: nasal congestion, sinus problems, dry mouth/throat, wisdom teeth removed. denies: tonsillectomy Endocrine: denies: thyroid disease Musculoskeletal: reports: joint pain, neck pain, back pain, joint swelling, muscle pain or cramping, mobility problems Immunologic: reports: sneezing, itching, allergies to food or environment (poultry) Physical Exam Vital signs obtained and entered by: CORY Casiano MA Blood Pressure: 124/70 (LEFT ARM) Cuff size: regular Heart Rate: 87 O2 Saturation: 96 Height: 5 ft 10 in Weight: 277 lb 9.6 oz Body Mass Index: 39.8 BMI Classification: Obese Neck circumference: 20.25 Mouth and throat: narrow oropharynx Soft palate: long Hard palate: normal Uvula: normal Uvula visualization: 50% Mallampati Class II Tongue: normal in size Tonsils: 2+ Neck: normal w/o lymphadenopathy or thyromegaly Heart: regular rate and rhythm Lungs: clear bilaterally Impression and Plan 1. Suspected Obstructive Sleep Apnea-Hypopnea Syndrome, as suggested by a history of loud and irregular snoring, morning headache, frequent awakening during the night, unrefreshed sleep, cognitive impairment, and excessive daytime sleepiness. Narrow oropharynx and obesity are common predisposing factors for obstructive sleep apnea-hypopnea syndrome. I recommend proceeding to polysomnography to confirm the diagnosis and to assess severity. If the patient has significant sleep disordered breathing, a manual CPAP titration study will also be performed to find the optimal treatment pressure. I informed the patient of what the sleep studies involve and after some discussion, obtained agreement to proceed. The pathophysiology of obstructive sleep apnea-hypopnea syndrome was discussed with the patient and health risks of cardiovascular and cerebrovascular disease if not treated. 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 Patient agreed to plan. * Schedule polysomnography * Avoid long distance driving or driving when feeling sleepy. * Avoid alcohol, sedative and muscle relaxant around bedtime. * Attempt to lose weight. * Review instructions provided by trained office staff on how to prepare for the sleep study. * Return for follow-up after sleep study completed. Counseling Topics: Weight loss health impact Visit Type: In Office Time Spent with Patient (minutes): 36 Provider Statement: I spent 100% of the Face to Face Visit with the patient with greater than 50% spent counseling the patient and coordination of care.
[2022-03-27 10:25] VITALS: BP 124/70
== END 2022-03-27 09:06 | disposition home or self-care (01) ==
LOC: SC 09:05
PROVIDERS: ATTEND Nurse Practitioner Family
DX: G47.10 Hypersomnia, unspecified (principal); R53.83 Other fatigue; G47.8 Other sleep disorders; R51.9 Headache, unspecified; R06.83 Snoring; E11.9 Type 2 diabetes mellitus without complications; I10 Essential (primary) hypertension; E66.9 Obesity, unspecified; Z68.39 Body mass index [BMI] 39.0-39.9, adult
CPT/HCPCS: 99203; 99212

== ENCOUNTER 2022-04-14 10:20 | Outpatient (CLI) | payer OTHER ==
[2022-04-14 10:32] LABS: BASOPHILS % (AUTO) 0.5 %; EOSINOPHILS # (AUTO) 0.2 10^3/uL (0.0-0.7); EOSINOPHILS % (AUTO) 2.3 %; HCT - HEMATOCRIT 45.8 % (42.0-52.0); HGB - HEMOGLOBIN 15.1 g/dL (14.0-18.0); LYMPHOCYTES # (AUTO) 3.2 10^3/uL (1.5-3.5); LYMPHOCYTES % (AUTO) 38.4 %; MEAN CORPUSCULAR HEMOGLOBIN 29.4 pg (27.0-31.0); MEAN CORPUSCULAR VOLUME 89.1 fL (80.0-94.0); MEAN PLATELET VOLUME 9.2 fL (7.4-11.4); MONOCYTES # (AUTO) 0.6 10^3/uL (0.0-1.0); MONOCYTES % (AUTO) 7.7 %; NEUTROPHILS # (AUTO) 4.2 10^3/uL (1.5-6.6); NEUTROPHILS % (AUTO) 50.6 %; PLT - PLATELET COUNT 202 10^3/uL (130-450); RED BLOOD COUNT 5.14 10^6/uL (4.70-6.10); RED CELL DISTRIBUTION WIDTH 12.8 % (12.0-15.0); WHITE BLOOD COUNT 8.2 x10^3/uL (4.8-10.8)
[2022-04-14 10:45] LABS: MICROALBUM/CREATININE RATIO,UR 2.5 ug/mg (<30.0); MICROALBUMIN,URINE 0.3 mg/dL (0-300.0)
[2022-04-14 10:53] LABS: ALBUMIN 3.8 g/dL (3.2-5.5); ALBUMIN/GLOBULIN RATIO 1.1 (1.0-2.2); ALKALINE PHOSPHATASE 60 IU/L (42-121); ALT ALANINE AMINOTRANSFERASE 24 IU/L (10-60); AST ASPARTATE AMINOTRANSFERASE 19 IU/L (10-42); BILIRUBIN,TOTAL 0.5 mg/dL (0.2-1.0); BUN - BLOOD UREA NITROGEN 19 mg/dL (6-20); CALCIUM 9.2 mg/dL (8.5-10.3); CARBON DIOXIDE - CO2 28 mmol/L (21-32); CHLORIDE 103 mmol/L (101-111); CHOL/HDL RATIO 3.1 (<5.0); CHOLESTEROL 148 mg/dL; CREATININE 1.1 mg/dL (0.6-1.2); GFR - MDRD 67 (>89); GLUCOSE 197 mg/dL (70-100); HDL CHOLESTEROL 47 mg/dL; LDL CHOLESTEROL,CALCULATED 66 mg/dL; LDL/HDL RATIO 1.4 (<3.6); POTASSIUM 4.2 mmol/L (3.5-5.0); SODIUM 138 mmol/L (135-145); TOTAL PROTEIN 7.2 g/dL (6.7-8.2); TRIGLYCERIDES 177 mg/dL; VLDL CHOLESTEROL 35 mg/dL
[2022-04-14 11:02] LABS: THYROID STIMULATING HORMONE 1.64 uIU/mL (0.34-5.60)
[2022-04-14 13:12] LABS: ESTIMATED AVERAGE GLUCOSE 171 mg/dL (70-100); HEMOGLOBIN A1c% 7.6 % (4.27-6.07)
== END 2022-04-14 10:21 | disposition home or self-care (01) ==
LOC: LAB 10:20
PROVIDERS: ATTEND Physician Assistant Medical
DX: Z00.00 Encounter for general adult medical examination without abnormal findings (principal); E11.9 Type 2 diabetes mellitus without complications; E78.5 Hyperlipidemia, unspecified; Z12.5 Encounter for screening for malignant neoplasm of prostate
CPT/HCPCS: 36415; 80053; 80061; 82043; 82570; 83036; 83721; 84153; 84443; 85025

== ENCOUNTER 2022-05-16 20:34 | Outpatient (CLI) | payer OTHER | END 2022-05-16 20:35 | disposition home or self-care (01) | LOC: SC 20:34 | PROVIDERS: ATTEND Nurse Practitioner Family | DX: G47.33 Obstructive sleep apnea (adult) (pediatric) (principal) | CPT/HCPCS: 95810 ==

== ENCOUNTER 2022-05-23 09:04 | Outpatient (CLI) | payer OTHER ==
[2022-05-23 09:35] VITALS: BP 136/80
--- NOTE | 2022-05-23 09:35 | SLEEP CARE CONSULTATION ---
Information from patient questionnaire entered by Brenna Smith. I have reviewed and concur with the information entered by Brenna Smith. This document represents the service I personally performed and the decisions made by , Christy Taylor ARNP. History of Present Illness Service Date and Time: 05/23/2022 09 Initial [place] Sleepiness Scale score: 9 (03/07/22) Current [place] Sleepiness Scale score: 10 (05/23/22) Additional HPI information: ABRAHAM MONTANO returns for follow up and results of the recently performed polysomnography. I explained the pathophysiology behind obstructive sleep apnea. We then spent quite a bit of time discussing different treatment options. For mild obstructive sleep apnea, surgery and oral appliance are alternatives to nasal CPAP therapy but in moderate or severe cases, nasal CPAP is the most effective and reliable treatment. I reviewed the impact of weight changes on sleep apnea and strongly recommended losing weight. After some discussion, the patient opted to go with the nasal CPAP therapy. Nasal autoCPAP set at 5-20 cmH20 will be ordered with rationale explained. A manual titration study will be ordered if unable to find optimal pressure with office adjustments. I explained how CPAP machine works and what to expect when using the machine. Using CPAP every night in order to get used to it was emphasized. Patient advised to put CPAP mask on before getting into bed so as not to fall asleep without CPAP. To assist acclimation to CPAP use, it could also be used for a short time during day while reading or watching TV. The patient was instructed to call the CPAP supplier to discuss any mechanical problem that may occur. If the mask given is uncomfortable or is difficult to keep on through the night even with adjustment, contact the CPAP supplier as many will replace with another mask style if notified before 30 days. If snoring or perceives is not getting enough air or too much air from the machine, notify this office. Patient counseled not drink alcohol less than 4 hours before bedtime as it can increase snoring and apnea. Patient was cautioned about risks of drowsy driving until sleepiness symptoms resolve. Sleep Study - Results Type of Sleep Study: Polysomnography (COMPLETED 05/16/22) Prior sleep studies: No Polysomnography/Home Sleep Study results: IMPRESSION: The quality of the study is good. The patient had reduced sleep efficiency due to a few prolonged awakenings during the night. The sleep architecture was abnormal for sleep fragmentation and lack of slow wave sleep (N3). Respiratory monitoring showed very severe obstructive sleep apnea- hypopnea (AHI = 98.5) associated with frequent arousals, oxyhemoglobin desaturation and moderate hypoxia (bethany oxygen saturation of 68%). Baseline oxygen saturation was normal. The respiratory events occurred independently of sleep stage and body position (supine AHI = 111.4; non-supine = 97.00). Snore was light to loud in intensity. There was no significant periodic leg movement of sleep. Cardiac rhythm was normal sinus rhythm without significant arrhythmia. No abnormal behavior (parasomnia) observed during the night. Allergies and Home Medications Known drug allergies: Yes (Coxegnz-PBL-[id number] Reductase inhibitor, poultry) Drug allergies reviewed: Yes Home medication list reviewed: Yes (no changes) Review of Systems Review of systems same as previous: Yes (no changes) Physical Exam Vital signs obtained and entered by: BRENNA Casiano MA Blood Pressure: 136/80 (LEFT ARM) Cuff size: long Heart Rate: 89 O2 Saturation: 98 Height: 5 ft 10 in Weight: 286 lb 6.4 oz Body Mass Index: 41.1 BMI Classification: Morbidly Obese Impression and Plan 1. Obstructive Sleep Apnea-Hypopnea Syndrome, extremely severe, with lowest oxygen saturation of 68%. Obviously this is the cause of the patients symptoms of unrefreshed sleep, and excessive daytime sleepiness. Positive pressure therapy could benefit hypertension, diabetes and cerebrovascular disease (stroke). As mentioned above, the patient will be started on nasal autoCPAP therapy with pressure set at 5-20 cmH2O. A manual titration study will be completed if unable to find optimal treatment pressure with office adjustments. Compliance guidelines also reviewed. A copy of compliance guidelines will be given for reference at check out. Because the apnea is more severe supine, I instructed to avoid sleeping supine using pillow positioning until able to start CPAP use. 2. Hypoxemia, moderate, with a bethany oxygen saturation of 68% and 93.9 minutes spent under 90%. His baseline oxygen saturation was normal with an average oxygen saturation of 90%. * Nasal auto CPAP therapy, pressure at 5-20 cm H2O, urgent setup due to moderate hypoxemia night of PSG. * Attempt to lose weight. * Avoid alcohol consumption near bedtime. * Avoid supine sleep until using CPAP. * The patient is again cautioned about driving until sleepiness completely resolves. * Return one month after CPAP obtained. I will assess response to therapy and compliance at that time. Counseling Topics: Weight loss health impact Visit Type: In Office Time Spent with Patient (minutes): 22 Provider Statement: I spent 100% of the Face to Face Visit with the patient with greater than 50% spent counseling the patient and coordination of care.
== END 2022-05-23 09:05 | disposition home or self-care (01) ==
LOC: SC 09:04
PROVIDERS: ATTEND Nurse Practitioner Family
DX: G47.33 Obstructive sleep apnea (adult) (pediatric) (principal); E66.01 Morbid (severe) obesity due to excess calories; Z68.41 Body mass index [BMI] 40.0-44.9, adult
CPT/HCPCS: 99212; 99213

== ENCOUNTER 2022-07-11 15:03 | Outpatient (CLI) | payer OTHER ==
--- NOTE | 2022-07-11 17:00 | XRAY Report ---
PROCEDURE: Elbow 2 View LT INDICATIONS: CONTUSION OF THE LEFT ELBOW TECHNIQUE: 2 views of the elbow were acquired. COMPARISON: None. FINDINGS: Bones: Mild degenerative changes. No displaced fracture or dislocation. Suspected osteophytes are pr esent. Soft tissues: No effusion. No suspicious soft tissue calcifications or masses. IMPRESSION: Degenerative changes without acute radiographic abnormality. If there is high concern for occult inju ry, consider repeat radiography or cross-sectional imaging. Reviewed by: Mj Burr MD on 07/11/2022 4:59 PM PDT Approved by: Mj Burr MD on 07/11/2022 4:59 PM PDT Station ID: [id number]
--- NOTE | 2022-07-11 17:01 | XRAY Report ---
PROCEDURE: Shoulder 2 View LT INDICATIONS: STRAIN OF MUCLES AND TENDONS OF THE ROTATOR CUFF. TECHNIQUE: 2 views of the shoulder were acquired. COMPARISON: None. FINDINGS: Bones: Mild to moderate acromioclavicular and mild glenohumeral degenerative changes. Soft tissues: No suspicious soft tissue calcifications. IMPRESSION: Degenerative changes. No acute radiographic abnormality. If there is high concern for further derange ment, consider MRI evaluation. Reviewed by: Mj Burr MD on 07/11/2022 5:00 PM PDT Approved by: Mj Burr MD on 07/11/2022 5:00 PM PDT Station ID: [id number]
== END 2022-07-11 23:59 | disposition home or self-care (01) ==
LOC: DI.N 15:03
PROVIDERS: ATTEND Family Medicine
DX: M19.012 Primary osteoarthritis, left shoulder (principal); M19.022 Primary osteoarthritis, left elbow

== ENCOUNTER 2022-08-12 08:15 | Outpatient (CLI) | payer OTHER ==
--- NOTE | 2022-08-12 09:53 | MRI Report ---
PROCEDURE: SHOULDER WO - LT INDICATIONS: L SHOULDER PAIN TECHNIQUE: Noncontrast oblique coronal T2 fast spin echo with fat saturation, oblique sagittal T1 spin echo and T2 fast spin echo with fat saturation, axial T1 spin echo and T2 fast spin echo with fat saturation t hrough the shoulder. COMPARISON: None. FINDINGS: Image quality: Excellent. Rotator cuff: There is mild diffuse T2 signal elevation throughout the supraspinatus and infraspinatu s tendons at the humeral insertion sites extending the muscular tendinous junctions, indicating tendi nopathy. Superimposed full-thickness tearing of the anterior supraspinatus tendon at the humeral inse rtion site measuring roughly 10 mm. Low-grade partial-thickness intrasubstance tearing of the mid and posterior supraspinatus as well as the anterior and mid infraspinatus tendons at the humeral inserti on sites extending the muscular tendon junction. There is full-thickness tearing of the inferior subs capularis tendon at the humeral insertion site. High-grade intrasubstance and bursal surface tearing of the mid infraspinatus tendon at the humeral insertion site. Teres minor is intact. Supraspinatus a trophy is present. Bones and bursae: No bone marrow contusions or fractures. Mild glenohumeral and moderate acromioclav icular joint degeneration. The acromion demonstrates conventional anatomy, without an os acromiale. No pathologic subacromial/subdeltoid bursal fluid is present. Capsule and soft tissues: Moderate glenohumeral joint effusion. Diffuse degenerative fraying of the g lenoid labrum. The long head of the biceps tendon demonstrates normal location and low-grade partial- thickness tearing rotator interval appears normal, without fibrosis. The coracohumeral ligament is n ormal in thickness. IMPRESSION: 1. Supraspinatus and infraspinatus tendinopathy. 2. Full-thickness and partial-thickness tearing of the supraspinatus tendon as described above with a ssociated atrophy. 3. Full-thickness and partial-thickness tearing of the subscapularis tendon as above. 4. Low-grade tearing of the infraspinatus tendon. 5. Acromioclavicular and glenohumeral joint osteoarthritis. Degenerative fraying of the glenoid labru m. 6. Partial-thickness biceps tendon tearing. 7. Glenohumeral joint effusion. Reviewed by: Phyllis Quinteros MD on 08/12/2022 9:51 AM PDT Approved by: Phyllis Quinteros MD on 08/12/2022 9:51 AM PDT Station ID: [id number]
== END 2022-08-12 08:16 | disposition home or self-care (01) ==
LOC: DI 08:15
PROVIDERS: ATTEND Internal Medicine
DX: M75.122 Complete rotator cuff tear or rupture of left shoulder, not specified as traumatic (principal); M19.012 Primary osteoarthritis, left shoulder; S46.222A Laceration of muscle, fascia and tendon of other parts of biceps, left arm, initial encounter; M25.412 Effusion, left shoulder